=== PATIENT | male | born 1955 | race Hispanic/Latino ===

== ENCOUNTER 2018-08-30 22:50 | Inpatient (IN) | payer MEDICARE, OTHER ==
[2018-08-30 23:47] LABS: Hematocrit 29.1 % (35.5-45.6); Hemoglobin 10.2 gm/dl (11.8-15.2); Mean Corpuscular HGB Conc 35 % (32-34); Mean Corpuscular Volume 84 fl (84-94); Platelet Count 590 K/mm3 (140-440); Red Blood Count 3.48 M/mm3 (3.65-5.03); Red Cell Distribution Width 17.1 % (13.2-15.2)
[2018-08-30 23:58] LABS: INR 1.02 (0.87-1.13); Partial Thromboplastin Time 34.6 Sec. (24.2-36.6)
[2018-08-31 00:03] LABS: Creatine Kinase MB 3.2 ng/mL (0.0-4.0)
[2018-08-31 00:04] LABS: BUN/Creatinine Ratio 16; Blood Urea Nitrogen 14 mg/dL (9-20); Calcium 8.6 mg/dL (8.4-10.2); Hemolysis Index 2
--- NOTE | 2018-08-31 00:14 | XRay Report ---
PROCEDURE: XR CHEST 1V AP TECHNIQUE: Chest radiograph single view. HISTORY: chest pain COMPARISONS: None . FINDINGS: Heart: The heart is mildly enlarged.. Mediastinum/Vessels: Normal. Lungs/Pleural space: There is slightly increased markings in both lung bases secondary to bibasilar scarring versus minimal atelectasis.. Bony thorax: No acute osseous abnormality. There is hardware in the proximal right humerus from previ ous ORIF. Life support devices: None. IMPRESSION: Minimal bibasilar scarring versus subsegmental atelectasis. No acute infiltrates or effu sions.. This document is electronically signed by Qamar Garvey MD., August 31 2018 12:12:36 AM ET
[2018-08-31] MEDS ORDERED: VANCOMYCIN/NS 1 GM/250 ML 1 GM/250 ML BAG IV ONE (00:25)
[2018-08-31] MEDS ORDERED: ZOSYN/NS 4.5GM/100ML 4.5 GM/100 ML VIAL IV ONE ×2 (00:25→10:59)
[2018-08-31] MEDS ORDERED: ASPIRIN PO ONE (00:27)
[2018-08-31] MEDS ORDERED: NACL 3% 250 ML IV ONE (00:31)
[2018-08-31] MEDS ORDERED: DILAUDID IV ONE (01:11)
[2018-08-31] MEDS ORDERED: ZOFRAN IV ONE (01:11)
--- NOTE | 2018-08-31 01:11 | Emergency Department Report ---
ED General Adult HPI - General Chief complaint: Chest Pain Stated complaint: ABD PAIN Time Seen by Provider: 08/30/18 22:55 Source: patient, EMS, old records reviewed (last visit was 2012 [facility] record for review, [facility] records reviewed and placed on chart) Mode of arrival: Stretcher Limitations: Physical Limitation - History of Present Illness Initial comments: 63-year-old male with hx of Diabetes presents from home with multiple compla ints. Initial complaint is chest pain, bilateral arm pain, and leg pain. He also states to me that he has pain in her buttock area from sitting. Patient presents to the ER covered in feces and with a wound VAC on his left foot. Patient states that he was discharged from [facility] rehabilitation facility 3 days ago back to his home. States that the wound care nurse did not come out his past August 28 as scheduled. Patient states prior to his rehabilitation admission he was at [facility]. Overall patient is a very poor historian. He is unable to qualify his pain or tell me how long he has had the chest pain. He denies being on antibiotics currently. Despite having on DM he states he takes 6-7 medications but he does not know what medical conditions he takes the medications for. I have requested medical records from [facility] Medical records received from [facility] at 1:30 AM summary below -Patient was admitted there July 20 until July 29 for sepsis -As per medical record past medical history of CHF, diabetes, alcohol abuse, right BKA, hypertension, left calcaneus osteomyelitis, arterial insufficiency with ischemic ulcer, CAD with PCI -Patient presented covered in feces and was admitted for cellulitis of the left lower extremity and sepsis. -Patient had a local wound debridement and treated with IV Unasyn. As per infectious disease (Dr valero and Dr Sutton) recommendation on July 27 it was recommended to continue IV Unasyn for 6 weeks and that ultimately patient may require an amputation. Patient received 1 unit of PRBCs for a hemoglobin drop to 6.9 during admission. -Upon discharged it was recommended by ID patient take Augmentin for 6 weeks. -Patient had positive blood cultures 2/4 bottles (1/2 sets_ with Staphylococcus epidermidis likely contaminated and repeat cultures showed no growth 48 hrs - Vascular consulted: pt has chronic contracture of left knee and therefore might require a Left AKA (not a BKA candidate) -patient also had hyponatremia (134 on admission) with improvement of sodium to 140 upon discharge -Patient has chronic diastolic heart failure with Last documented EF is greater than 55% -Patient had a metabolic acidosis secondary to sepsis and AKA and was also treated with sodium bicarbonate 650 mg by mouth 3 times a day -Patient is anemia with suspected to be due to chronic illness -Patient also had acute kidney injury with a creatinine of 1.79 during admission -Reactive thrombocytosis with platelet count of 349303 -Patient has a history of alcohol abuse in this patient [facility] protocol for Librium taper as needed -He also state patient has a history of hypertension and his meds would be continued of note Dr Fields (vascular surgeon) preformed left lower extremity arteriog leandra Dr Baldwin was the [employer] consulted Patient had also previously been admitted to [facility] in May 2018 for left leg cellulitis at [facility] as well MRI performed on 06/09/2016 showed underlying osteomyelitis of the left calcaneus pt was d/red at that time on 4 wks of flagyl, cipro, and doxy but did not take the meds nor follow up Please refer to records on chart for further details - Related Data Allergies Allergy/AdvReac Type Severity Reaction Status Date / Time No Known Allergies Allergy Verified 08/31/18 00:37 ED Review of Systems ROS: Stated complaint: ABD PAIN Other details as noted in HPI Comment: All other systems reviewed and negative ED Past Medical Hx - Past Medical History Hx Hypertension: Yes Hx Heart Attack/AMI: Yes (hx of cad s/p PCI) Hx Congestive Heart Failure: Yes Hx Diabetes: Yes Additional medical history: History of alcohol abuse, arterial insufficiency with ischemic ulcer, left calcaneus osteomyelitis - Surgical History Past Surgical History?: Yes Additional Surgical History: right BKA ED Physical Exam - General Limitations: Physical Limitation - Other Other exam information: General: pt arrived covered in feces Head exam: Atraumatic, normocephalic Eyes exam: Normal appearance, pupils equal reactive to light, extraocular movements intact ENT: Moist mucous membrane Neck exam: Normal inspection, full range of motion, no meningismus nontender Respiratory exam: Clear to auscultation bilateral, no wheezes, rales, crackles Cardiovascular: Normal rate and rhythm, normal heart sounds Abdomen: Soft, nondistended, and nontender, with normal bowel sounds, no rebound, or guarding Extremity: Right bka, left foot with medial wound vac initial dressing dirty and covered in feces, left foot edema. Redness to left power leg Back: Normal Inspection, full range of motion, no tenderness Neurologic: Alert, oriented x3, cranial nerves intact, no motor or sensory deficit Psychiatric: normal affect, normal mood Skin: Patient had various stage I pressure ulcer is on the perineal and gluteal area referred to pictures on record ED Course Vital Signs 08/31/18 08/31/18 08/31/18 00:12 00:15 00:26 Temperature 99 F Pulse Rate 83 82 Respiratory 26 H 21 Rate Blood Pressure 134/63 Blood Pressure [Left] O2 Sat by Pulse 97 97 Oximetry 08/31/18 08/31/18 08/31/18 06:21 10:09 15:10 Temperature Pulse Rate 86 90 91 H Respiratory 17 27 H 20 Rate Blood Pressure Blood Pressure 162/77 112/57 137/71 [Left] O2 Sat by Pulse 96 98 96 Oximetry ED Medical Decision Making - Lab Data Result diagrams: 08/30/18 23:28 08/31/18 10:54 Lab Results 08/30/18 08/30/18 08/30/18 Range/Units 23:28 23:28 23:28 WBC 20.5 H (4.5-11.0) K/mm3 RBC 3.48 L (3.65-5.03) M/mm3 Hgb 10.2 L (11.8-15.2) gm/dl Hct 29.1 L (35.5-45.6) % MCV 84 (84-94) fl MCH 29 (28-32) pg MCHC 35 H (32-34) % RDW 17.1 H (13.2-15.2) % Plt Count 590 H (140-440) K/mm3 Add Manual Diff Complete Total Counted 100 Seg Neuts % (Manual) 69.0 (40.0-70.0) % Band Neutrophils % 0 % Lymphocytes % (Manual) 22.0 (13.4-35.0) % Reactive Lymphs % (Man) 0 % Monocytes % (Manual) 7.0 (0.0-7.3) % Eosinophils % (Manual) 1.0 (0.0-4.3) % Basophils % (Manual) 1.0 (0.0-1.8) % Metamyelocytes % 0 % Myelocytes % 0 % Promyelocytes % 0 % Blast Cells % 0 % Nucleated RBC % Not Reportable Seg Neutrophils # Man 14.1 H (1.8-7.7) K/mm3 Band Neutrophils # 0.0 K/mm3 Lymphocytes # (Manual) 4.5 (1.2-5.4) K/mm3 Abs React Lymphs (Man) 0.0 K/mm3 Monocytes # (Manual) 1.4 H (0.0-0.8) K/mm3 Eosinophils # (Manual) 0.2 (0.0-0.4) K/mm3 Basophils # (Manual) 0.2 H (0.0-0.1) K/mm3 Metamyelocytes # 0.0 K/mm3 Myelocytes # 0.0 K/mm3 Promyelocytes # 0.0 K/mm3 Blast Cells # 0.0 K/mm3 WBC Morphology Not Reportable Hypersegmented Neuts Not Reportable Hyposegmented Neuts Not Reportable Hypogranular Neuts Not Reportable Smudge Cells Not Reportable Toxic Granulation Not Reportable Toxic Vacuolation Not Reportable Dohle Bodies Not Reportable Pelger-Huet Anomaly Not Reportable Lauren Rods Not Reportable Platelet Estimate Not Reportable Clumped Platelets Not Reportable Plt Clumps, EDTA Not Reportable Large Platelets Not Reportable Giant Platelets Not Reportable Platelet Satelliting Not Reportable Plt Morphology Comment Not Reportable RBC Morphology Normal Dimorphic RBCs Not Reportable Polychromasia Not Reportable Hypochromasia Not Reportable Poikilocytosis Not Reportable Anisocytosis Not Reportable Microcytosis Not Reportable Macrocytosis Not Reportable Spherocytes Not Reportable Pappenheimer Bodies Not Reportable Sickle Cells Not Reportable Target Cells Not Reportable Tear Drop Cells Not Reportable Ovalocytes Not Reportable Helmet Cells Not Reportable [place] Bodies Not Reportable [place] Rings Not Reportable Crowell Cells Not Reportable Bite Cells Not Reportable Crenated Cell Not Reportable Elliptocytes Not Reportable Acanthocytes (Spur) Not Reportable Rouleaux Not Reportable Hemoglobin C Crystals Not Reportable Schistocytes Not Reportable Malaria parasites Not Reportable Tim Bodies Not Reportable Hem Pathologist Commnt No PT 14.0 (12.2-14.9) Sec. INR 1.02 (0.87-1.13) APTT 34.6 (24.2-36.6) Sec. VBG pH (7.320-7.420) Sodium 112 L* (137-145) mmol/L Potassium 4.7 (3.6-5.0) mmol/L Chloride 81.1 L (98-107) mmol/L Carbon Dioxide 16 L (22-30) mmol/L Anion Gap 21 mmol/L BUN 14 (9-20) mg/dL Creatinine 0.9 (0.8-1.5) mg/dL Estimated GFR > 60 ml/min BUN/Creatinine Ratio 16 % Glucose 117 H (75-100) mg/dL Osmolality Mosm/kg Lactic Acid (0.7-2.0) mmol/L Calcium 8.6 (8.4-10.2) mg/dL Total Creatine Kinase 59 (55-170) units/L CK-MB (CK-2) 3.2 (0.0-4.0) ng/mL CK-MB (CK-2) Rel Index 5.4 H (0-4) Troponin T 0.065 H (0.00-0.029) ng/mL 08/31/18 08/31/18 08/31/18 Range/Units 00:37 00:37 00:37 WBC (4.5-11.0) K/mm3 RBC (3.65-5.03) M/mm3 Hgb (11.8-15.2) gm/dl Hct (35.5-45.6) % MCV (84-94) fl MCH (28-32) pg MCHC (32-34) % RDW (13.2-15.2) % Plt Count (140-440) K/mm3 Add Manual Diff Total Counted Seg Neuts % (Manual) (40.0-70.0) % Band Neutrophils % % Lymphocytes % (Manual) (13.4-35.0) % Reactive Lymphs % (Man) % Monocytes % (Manual) (0.0-7.3) % Eosinophils % (Manual) (0.0-4.3) % Basophils % (Manual) (0.0-1.8) % Metamyelocytes % % Myelocytes % % Promyelocytes % % Blast Cells % % Nucleated RBC % Seg Neutrophils # Man (1.8-7.7) K/mm3 Band Neutrophils # K/mm3 Lymphocytes # (Manual) (1.2-5.4) K/mm3 Abs React Lymphs (Man) K/mm3 Monocytes # (Manual) (0.0-0.8) K/mm3 Eosinophils # (Manual) (0.0-0.4) K/mm3 Basophils # (Manual) (0.0-0.1) K/mm3 Metamyelocytes # K/mm3 Myelocytes # K/mm3 Promyelocytes # K/mm3 Blast Cells # K/mm3 WBC Morphology Hypersegmented Neuts Hyposegmented Neuts Hypogranular Neuts Smudge Cells Toxic Granulation Toxic Vacuolation Dohle Bodies Pelger-Huet Anomaly Lauren Rods Platelet Estimate Clumped Platelets Plt Clumps, EDTA Large Platelets Giant Platelets Platelet Satelliting Plt Morphology Comment RBC Morphology Dimorphic RBCs Polychromasia Hypochromasia Poikilocytosis Anisocytosis Microcytosis Macrocytosis Spherocytes Pappenheimer Bodies Sickle Cells Target Cells Tear Drop Cells Ovalocytes Helmet Cells Bai-[place]ann Bodies [place] Rings Lee Cells Bite Cells Crenated Cell Elliptocytes Acanthocytes (Spur) Rouleaux Hemoglobin C Crystals Schistocytes Malaria parasites Tim Bodies Hem Pathologist Commnt PT (12.2-14.9) Sec. INR (0.87-1.13) APTT (24.2-36.6) Sec. VBG pH (7.320-7.420) Sodium (137-145) mmol/L Potassium (3.6-5.0) mmol/L Chloride 79.5 L (98-107) mmol/L Carbon Dioxide (22-30) mmol/L Anion Gap mmol/L BUN (9-20) mg/dL Creatinine (0.8-1.5) mg/dL Estimated GFR ml/min BUN/Creatinine Ratio % Glucose (75-100) mg/dL Osmolality 278 Mosm/kg Lactic Acid (0.7-2.0) mmol/L Calcium (8.4-10.2) mg/dL Total Creatine Kinase (55-170) units/L CK-MB (CK-2) (0.0-4.0) ng/mL CK-MB (CK-2) Rel Index (0-4) Troponin T 0.078 H (0.00-0.029) ng/mL 08/31/18 08/31/18 Range/Units 00:37 Unknown WBC (4.5-11.0) K/mm3 RBC (3.65-5.03) M/mm3 Hgb (11.8-15.2) gm/dl Hct (35.5-45.6) % MCV (84-94) fl MCH (28-32) pg MCHC (32-34) % RDW (13.2-15.2) % Plt Count (140-440) K/mm3 Add Manual Diff Total Counted Seg Neuts % (Manual) (40.0-70.0) % Band Neutrophils % % Lymphocytes % (Manual) (13.4-35.0) % Reactive Lymphs % (Man) % Monocytes % (Manual) (0.0-7.3) % Eosinophils % (Manual) (0.0-4.3) % Basophils % (Manual) (0.0-1.8) % Metamyelocytes % % Myelocytes % % Promyelocytes % % Blast Cells % % Nucleated RBC % Seg Neutrophils # Man (1.8-7.7) K/mm3 Band Neutrophils # K/mm3 Lymphocytes # (Manual) (1.2-5.4) K/mm3 Abs React Lymphs (Man) K/mm3 Monocytes # (Manual) (0.0-0.8) K/mm3 Eosinophils # (Manual) (0.0-0.4) K/mm3 Basophils # (Manual) (0.0-0.1) K/mm3 Metamyelocytes # K/mm3 Myelocytes # K/mm3 Promyelocytes # K/mm3 Blast Cells # K/mm3 WBC Morphology Hypersegmented Neuts Hyposegmented Neuts Hypogranular Neuts Smudge Cells Toxic Granulation Toxic Vacuolation Dohle Bodies Pelger-Huet Anomaly Lauren Rods Platelet Estimate Clumped Platelets Plt Clumps, EDTA Large Platelets Giant Platelets Platelet Satelliting Plt Morphology Comment RBC Morphology Dimorphic RBCs Polychromasia Hypochromasia Poikilocytosis Anisocytosis Microcytosis Macrocytosis Spherocytes Pappenheimer Bodies Sickle Cells Target Cells Tear Drop Cells Ovalocytes Helmet Cells [place] Bodies [place] Rings Lee Cells Bite Cells Crenated Cell Elliptocytes Acanthocytes (Spur) Rouleaux Hemoglobin C Crystals Schistocytes Malaria parasites Tim Bodies Hem Pathologist Commnt PT (12.2-14.9) Sec. INR (0.87-1.13) APTT (24.2-36.6) Sec. VBG pH 7.299 L (7.320-7.420) Sodium (137-145) mmol/L Potassium (3.6-5.0) mmol/L Chloride (98-107) mmol/L Carbon Dioxide (22-30) mmol/L Anion Gap mmol/L BUN (9-20) mg/dL Creatinine (0.8-1.5) mg/dL Estimated GFR ml/min BUN/Creatinine Ratio % Glucose (75-100) mg/dL Osmolality Mosm/kg Lactic Acid 2.30 H* (0.7-2.0) mmol/L Calcium (8.4-10.2) mg/dL Total Creatine Kinase (55-170) units/L CK-MB (CK-2) (0.0-4.0) ng/mL CK-MB (CK-2) Rel Index (0-4) Troponin T (0.00-0.029) ng/mL - EKG Data -: EKG Interpreted by Me (Right Bundle branch block) EKG shows normal: sinus rhythm (qr), axis (qrs 76), QRS complexes (qrsd 181), ST-T waves (no stemi) Rate: normal (84) - EKG Data When compared to previous EKG there are: no significant change (from [facility]) - Radiology Data Radiology results: report reviewed cxr: naf PROCEDURE: CT ANGIO CHEST TECHNIQUE: Computerized tomographic angiography of the chest was performed after the IV injection of iodinated nonionic contrast including image processing. The image data was postprocessed using 2-dimensional multiplanar reformatted (MPR) and 3-dimensional (MIP and/or volume rendered) techniques. Automated exposure control, adjustment of mA and/or kV according to patient size, or iterative reconstruction dose optimization techniques were utilized. HISTORY: chest pain COMPARISONS: None . FINDINGS: Heart and pericardium: The heart size is normal. No pericardial effusion. There are some cysts identified on the thyroid gland bilaterally.. Thoracic aorta: Normal. Pulmonary vasculature: Normal. Lymph nodes: No enlarged thoracic lymph nodes. Lungs: Bilateral lower lung atelectasis. No effusion or pneumothorax. The central airway is patent. Pleural space: No effusion, thickening, or pneumothorax. Musculoskeletal structures: No significant abnormality. Upper abdominal structures: No significant abnormality. IMPRESSION: There is no evidence of pulmonary arterial emboli. The lungs are clear without infiltrate, effusion or pneumothorax. Small cysts are identified in both lobes thyroid gland PROCEDURE: XR FOOT 2V LT HISTORY: wound, hx of osteomyelitis FINDINGS: AP and lateral views of the left foot were acquired. There is loss of cortical bone of the posterior and plantar aspects of the calcaneus, likely osteomyelitis. Consider MRI for further evaluation. There is also soft tissue swelling of the midfoot. There is severe osteopenia of the distal metatarsal symptomatology. IMPRESSION: Suspected osteomyelitis of posterior aspect of calcaneus and plantar aspect of calcaneus. - Medical Decision Making cp elevated trop stable x2, no stemi, cta to r/o PE asa provided Right Bundle-branch block chronic as per previous ekg hx of cad leukocytosis various stage 1 pressure ulcers, and foot wound vac urine collection pending cultures pending vanc, zosyn empirically recent sepsis with ongoing left foot osteomyelitis ? compliance with meds Pt may require amputation hyponatremia acute based on recent d/c summary 3% NS 250ml at 25ml/hr ordered since pt does have signs of leg edema Urine lytes/osmo ordered he does appear to be mildly confuse although aox3 is unable to provide details or regarding his history of present illness in recent treatment also hx of chf, etoh abuse generalized pain tx with Dilaudid 0.5mg and zofran Pt presented with covered in feces and my need additional home care vs intermediate/rehab upon d/c Patient will need to be admitted to the hospital for further treatment. I have requested medical records from [facility] to determine patient's recent hospital course, treatment, and underlying chronic conditions. Patient has been discussed with Dr. Salgado hospitalist control panel tester I requested that Dr. Woodard recontact Dr Salgado for admission once CT angiogram results - Differential Diagnosis VT, Pulm embolism, encephalopathy Critical Care Time: Yes Critical care time in (mins) excluding proc time.: 35 Critical care attestation.: If time is entered above; I have spent that time in minutes in the direct care of this critically ill patient, excluding procedure time. ED Disposition Clinical Impression: Left foot infection, Cellulitis, Hyponatremia, Chest pain, Elevated troponin, Leukocytosis, Foot osteomyelitis, left, Sepsis Disposition: OP ADMIT IP TO THIS HOSP Is pt being admited?: No Condition: Stable Time of Disposition: 02:14
[2018-08-31] MEDS ORDERED: ZOFRAN ONE (01:14)
[2018-08-31] MEDS ORDERED: DILAUDID ONE (01:14)
[2018-08-31 02:06] LABS: Total Cells Counted 100
[2018-08-31 02:07] LABS: RBC Morphology Normal
--- NOTE | 2018-08-31 02:20 | Cat Scan Report ---
PROCEDURE: CT ANGIO CHEST TECHNIQUE: Computerized tomographic angiography of the chest was performed after the IV injection of iodinated nonionic contrast including image processing. The image data was postprocessed using 2-di mensional multiplanar reformatted (MPR) and 3-dimensional (MIP and/or volume rendered) techniques. Au tomated exposure control, adjustment of mA and/or kV according to patient size, or iterative reconstr uction dose optimization techniques were utilized. HISTORY: chest pain COMPARISONS: None . FINDINGS: Heart and pericardium: The heart size is normal. No pericardial effusion. There are some cysts identi fied on the thyroid gland bilaterally.. Thoracic aorta: Normal. Pulmonary vasculature: Normal. Lymph nodes: No enlarged thoracic lymph nodes. Lungs: Bilateral lower lung atelectasis. No effusion or pneumothorax. The central airway is patent. Pleural space: No effusion, thickening, or pneumothorax. Musculoskeletal structures: No significant abnormality. Upper abdominal structures: No significant abnormality. IMPRESSION: There is no evidence of pulmonary arterial emboli. The lungs are clear without infiltrate, effusion or pneumothorax. Small cysts are identified in both lobes thyroid gland.. . This document is electronically signed by Riya Diez DO., August 31 2018 02:18:21 AM ET
--- NOTE | 2018-08-31 03:06 | XRay Report ---
PROCEDURE: XR FOOT 2V LT HISTORY: wound, hx of osteomyelitis FINDINGS: AP and lateral views of the left foot were acquired. There is loss of cortical bone of the posterior and plantar aspects of the calcaneus, likely osteomye litis. Consider MRI for further evaluation. There is also soft tissue swelling of the midfoot. There is severe osteopenia of the distal metatarsal symptomatology. IMPRESSION: Suspected osteomyelitis of posterior aspect of calcaneus and plantar aspect of calcaneus. This document is electronically signed by Calvin Dillon MD., August 31 2018 03:04:21 AM ET
[2018-08-31] MEDS ORDERED: SODIUM CHLORIDE FLUSH SYRINGE 10 ML IV PRN (03:16)
[2018-08-31] MEDS ORDERED: ZOFRAN IV PRN (03:16)
--- NOTE | 2018-08-31 03:20 | History and Physical Report ---
History of Present Illness Date of examination: 08/31/18 History of present illness: 63 -year-old man who is a poor historian, most of history was obtained from the chart from [place]. He has a history of hypertension, diabetes, coronary artery disease, CHF, PVD comes to the ER for evaluation of left leg pain. He arrived to the ER covered in feces. He had multiple admission to [facility] for treatment of osteomylitis of calcaneus, non-compliant with treatment. His last admission he was treated with Unasyn, his cultures grew Staph Epi, repeat culture shows no growth, discharged on augmentin x 6 weeks to a rehab. He was discharged 3 to 4 days ago to home. today he complain of chest pain in the epigastric area, unable to give details. He denies nausea, vomiting, SOB, diaphoresis Review of systems Constitutional: no weight loss, chills, fever Ears, eyes, nose, mouth and throat: no nasal congestion, no nasal discharge, no sinus pressure, no vision change, no red eye. Neck: No neck pain or rigidity. Cardiovascular: no palpitations. Respiratory: no cough, shortness of breath Gastrointestinal: no hematochezia, abdominal pain Genitourinary : no frequency , no hematuria Musculoskeletal: no joint swelling or muscle ache Integumentary: no rash, no pruritis Neurological: no parathesias, no focal weakness Endocrine: no cold or heat intolerance, no polyuria or polydipsia Hematologic/Lymphatic: no easy bruising, no easy bleeding, no gland swelling Allergic/Immunologic: no urticaria, no angioedema. PAST MEDICAL HISTORY:hypertension, diabetes, coronary artery disease, CHF, PVD PAST SURGICAL HISTORY: Right BKA, right shoulder SOCIAL HISTORY: + alcohol, no drugs, tobacco FAMILY HISTORY: Hypertension Medications and Allergies Allergies Allergy/AdvReac Type Severity Reaction Status Date / Time No Known Allergies Allergy Verified 08/31/18 00:37 Active Meds: Active Medications Acetaminophen (Tylenol) 650 mg PO Q4H PRN PRN Reason: Pain MILD(1-3)/Fever >100.5/ZULUAGA Sodium Chloride (Nacl 3%) 250 mls @ 25 mls/hr IV DIRECT ONE Stop: 08/31/18 10:30 Last Admin: 08/31/18 01:28 Dose: 25 mls/hr Documented by: Piperacillin Sod/Tazobactam Sod (Zosyn/Ns 3.375gm/50ml) 3.375 gm in 50 mls @ 100 mls/hr IV Q8HR MATEO Ondansetron HCl (Zofran) 4 mg IV Q8H PRN PRN Reason: Nausea And Vomiting Sodium Chloride (Sodium Chloride Flush Syringe 10 Ml) 10 ml IV BID [facility] Sodium Chloride (Sodium Chloride Flush Syringe 10 Ml) 10 ml IV PRN PRN PRN Reason: LINE FLUSH Exam - Physical Exam Narrative exam: General Apperance: The patient lying in bed, breathing comfortable HEENT: Normocephalic, atraumatic. Pupils equally round and reactive to light, EOMI, no sclericterus or JVD or thyromegaly or nodule. , no carotid bruit, muco us membranes moist, no exudate or erythema Heart: S1-S2, regular is rhythm Lungs: Clear to auscultation bilaterally, breathing comfortable Abdomen: Positive bowel sounds, soft, nontender, nondistended, no organomegaly Extremities: Right BKA, left heel wound with wound VAC, No edema cyanosis clubbing Skin: sacral decubitusno rash, nodule, warm and dry Neuro: cranial nerves 2-12 intact, speech is fluent, motor/sensory intact - Constitutional Vitals: Temp Pulse Resp BP Pulse Ox 99 F 82 21 134/63 97 08/31/18 00:26 08/31/18 00:15 08/31/18 00:15 08/31/18 00:15 08/31/18 00:15 Results - Labs CBC & Chem 7: 08/30/18 23:28 08/31/18 03:37 Labs: Abnormal lab results 08/30/18 08/30/18 08/31/18 Range/Units 23:28 23:28 00:37 WBC 20.5 H (4.5-11.0) K/mm3 RBC 3.48 L (3.65-5.03) M/mm3 Hgb 10.2 L (11.8-15.2) gm/dl Hct 29.1 L (35.5-45.6) % MCHC 35 H (32-34) % RDW 17.1 H (13.2-15.2) % Plt Count 590 H (140-440) K/mm3 Seg Neutrophils # Man 14.1 H (1.8-7.7) K/mm3 Monocytes # (Manual) 1.4 H (0.0-0.8) K/mm3 Basophils # (Manual) 0.2 H (0.0-0.1) K/mm3 VBG pH (7.320-7.420) Sodium 112 L* (137-145) mmol/L Chloride 81.1 L (98-107) mmol/L Carbon Dioxide 16 L (22-30) mmol/L Glucose 117 H (75-100) mg/dL Lactic Acid (0.7-2.0) mmol/L CK-MB (CK-2) Rel Index 5.4 H (0-4) Troponin T 0.065 H 0.078 H (0.00-0.029) ng/mL 08/31/18 08/31/18 08/31/18 Range/Units 00:37 00:37 01:30 WBC (4.5-11.0) K/mm3 RBC (3.65-5.03) M/mm3 Hgb (11.8-15.2) gm/dl Hct (35.5-45.6) % MCHC (32-34) % RDW (13.2-15.2) % Plt Count (140-440) K/mm3 Seg Neutrophils # Man (1.8-7.7) K/mm3 Monocytes # (Manual) (0.0-0.8) K/mm3 Basophils # (Manual) (0.0-0.1) K/mm3 VBG pH (7.320-7.420) Sodium (137-145) mmol/L Chloride 79.5 L (98-107) mmol/L Carbon Dioxide (22-30) mmol/L Glucose (75-100) mg/dL Lactic Acid 2.30 H* 2.10 H* (0.7-2.0) mmol/L CK-MB (CK-2) Rel Index (0-4) Troponin T (0.00-0.029) ng/mL 08/31/18 08/31/18 Range/Units 02:21 Unknown WBC (4.5-11.0) K/mm3 RBC (3.65-5.03) M/mm3 Hgb (11.8-15.2) gm/dl Hct (35.5-45.6) % MCHC (32-34) % RDW (13.2-15.2) % Plt Count (140-440) K/mm3 Seg Neutrophils # Man (1.8-7.7) K/mm3 Monocytes # (Manual) (0.0-0.8) K/mm3 Basophils # (Manual) (0.0-0.1) K/mm3 VBG pH 7.299 L (7.320-7.420) Sodium (137-145) mmol/L Chloride (98-107) mmol/L Carbon Dioxide (22-30) mmol/L Glucose (75-100) mg/dL Lactic Acid 2.10 H* (0.7-2.0) mmol/L CK-MB (CK-2) Rel Index (0-4) Troponin T (0.00-0.029) ng/mL - Imaging and Cardiology CT scan - chest: report reviewed Assessment and Plan Assessment Cellulitis of the left leg with osteomyelitisw/ wound vac Chest pain Hyponatremia severe Hypertension Diabetes Coronary artery disease CHF, stable Peripheral vascular disease Sacral decub Plan Admit to medicine Start IV Zosyn, consult infectious disease, case d/w Dr Short Check serial BMP, urine electrolytes, consult renal, case discussed with Dr Tucker Check cardiac enzymes, consult cardiology Check physician initiated insulin sliding-scale Continue her outpatient medications DVT prophylaxis, consult wound care
[2018-08-31 04:08] LABS: BUN/Creatinine Ratio 16; Blood Urea Nitrogen 14 mg/dL (9-20); Hemolysis Index 57
[2018-08-31 04:41] LABS: Chol/HDL Ratio 2.92 %; HDL Cholesterol 53 mg/dL (40-59); LDL Cholesterol,Direct 88 mg/dL (50-130)
[2018-08-31 04:45] LABS: Creatine Kinase MB 3.2 ng/mL (0.0-4.0)
[2018-08-31] MEDS ORDERED: ZOSYN/NS 3.375GM/50ML 3.375 GM/50 ML BAG IV SCH (06:00)
[2018-08-31 07:10] LABS: Bilirubin,Urine NEG (Negative); Blood,Urine LG (Negative); Color,Urine Straw (Yellow)
[2018-08-31 07:11] LABS: Bacteria,Urine 1+ /HPF (Negative); Mucus,Urine FEW /HPF; Urobilinogen,Urine < 2.0 mg/dL (<2.0)
[2018-08-31 08:06] LABS: BUN/Creatinine Ratio 16; Blood Urea Nitrogen 14 mg/dL (9-20); Calcium 7.7 mg/dL (8.4-10.2); Hemolysis Index 7
[2018-08-31] MEDS ORDERED: ZOSYN/NS 4.5GM/100ML 4.5 GM/100 ML VIAL IV SCH (10:00)
[2018-08-31] MEDS ORDERED: LOVENOX SUB-Q SCH (10:00)
[2018-08-31] MEDS ORDERED: TYLENOL ONE (10:59)
[2018-08-31] MEDS ORDERED: LOVENOX SUB-Q ONE (11:04)
[2018-08-31] MEDS: LOVENOX SUB-Q SCH (11:05)
[2018-08-31] MEDS: SODIUM CHLORIDE FLUSH SYRINGE 10 ML IV SCH ×2 (11:05→22:53)
[2018-08-31] MEDS: TYLENOL PO PRN ×2 (11:35→22:53)
[2018-08-31 11:48] LABS: Creatine Kinase MB 4.3 ng/mL (0.0-4.0)
[2018-08-31 11:49] LABS: BUN/Creatinine Ratio 15; Blood Urea Nitrogen 15 mg/dL (9-20); Calcium 7.9 mg/dL (8.4-10.2); Hemolysis Index 50
--- NOTE | 2018-08-31 12:10 | Consultation ---
History of Present Illness - Reason for Consult Consult date: 08/31/18 hyponatremia - History of Present Illness The patient is a 63 YO male who is known to our service from previous admissions at [facility] with historysignificant for Chronic diastolic CHF,Diabetes mellitus type 2, ETOH abuse, right BKA, chronic L leg wound (refused amputation), Anemia and medical non-compliance who presented to [facility] ED with c/o L leg pain. Patient is a poor historian. He arrived to the ER covered in feces. He had multiple admissions at [facility] for treatment of osteomylitis of calcaneus. He was discharged on 07/29/18 from [facility] to a rehab and discharged home 3 to 4 days ago. He denies nausea, vomiting, diarrhea, SOB, diaphoresis, cough, fever, chills, Hemoptysis, cp, sob, dysuria, hematuria or dizziness. Patient has left foot wound vac. Patient wasadmitted with L leg cellulitis, Hyponatremia and ?CP. Sodium is 110 and bicarb 10. Nephrology was consulted for further evaluation and treatment. Past History Past Medical History: anemia, heart failure, hypertension, hyperlipidemia Medications and Allergies Allergies Allergy/AdvReac Type Severity Reaction Status Date / Time No Known Allergies Allergy Verified 08/31/18 00:37 Active Meds: Active Medications Acetaminophen (Tylenol) 650 mg PO Q4H PRN PRN Reason: Pain MILD(1-3)/Fever >100.5/Z[place] Last Admin: 08/31/18 11:35 Dose: 650 mg Documented by: Enoxaparin Sodium (Lovenox) 40 mg SUB-Q QDAY@1000 [facility] Last Admin: 08/31/18 11:05 Dose: 40 mg Documented by: Piperacillin Sod/Tazobactam Sod (Zosyn/Ns 4.5gm/100ml) 4.5 gm in 100 mls @ 200 mls/hr IV Q8H [facility] Last Admin: 08/31/18 11:05 Dose: 200 mls/hr Documented by: Ondansetron HCl (Zofran) 4 mg IV Q8H PRN PRN Reason: Nausea And Vomiting Sodium Chloride (Sodium Chloride Flush Syringe 10 Ml) 10 ml IV BID [facility] Last Admin: 08/31/18 11:05 Dose: 10 ml Documented by: Sodium Chloride (Sodium Chloride Flush Syringe 10 Ml) 10 ml IV PRN PRN PRN Reason: LINE FLUSH Review of Systems Constitutional: no weight loss, no weight gain, no fever, no chills, no anorexia, no fatigue, no weakness, no poor appetite Cardiovascular: edema, leg edema, no chest pain, no orthopnea, no syncope, no lightheadedness, no shortness of breath, no decreased exercise tolerance Respiratory: no cough, no hemoptysis, no shortness of breath Gastrointestinal: no abdominal pain, no nausea, no vomiting Genitourinary Male: no dysuria, no hematuria Integumentary: sores, wounds (L foot) Neurological: no paralysis, no weakness, no seizures, no syncope, no convulsions, no aphasia Exam - Vital Signs Vital signs: Vital Signs Pulse Resp Pulse Ox 83 26 H 97 08/31/18 00:12 08/31/18 00:12 08/31/18 00:12 - General Appearance General appearance: well-developed, appears stated age, other (no distress) EENT: ATNC, PERRL, mucous membranes dry, hearing intact, vision intact Neck: Present: neck supple, trachea midline Respiratory: Clear to Ascultation Heart: regular, S1S2, no murmurs Gastrointestinal: Present: normoactive bowel sounds. Absent: tenderness, distended Integumentary: erythema (L foot covered with dressing and wound vac) Neurologic: no focal deficit, no asterixis Musculoskeletal: Present: other (no edema) Results - Lab Results 08/30/18 23:28 08/31/18 10:54 Most recent lab results Calcium 7.9 mg/dL (8.4-10.2) L 08/31/18 10:54 13.0 mg/dL (0.1-20.0) 08/31/18 06:46 14 mmol/L 08/31/18 06:46 Assessment and Plan 1. Hyponatremia: Likley hypoantremia 2/2 volume depletion. He was on 3% saline. Start on 0.9% saline. Monitor Sodium level for gradual imporvement. 2. FEN: Metabolic acidosis,PO Sodium bicarbonate. Lactic acidosis, monitor. Monitor lytes. 3. Sepsis: Chronic left heel osteomyelitis. Followed by ID. 4. Anemia: POA. Chronic. 5. Chronic diastolic CHF. 6. HTN.
--- NOTE | 2018-08-31 13:00 | Consultation ---
History of Present Illness Consult date: 08/31/18 Consult reason: chest pain History of present illness: Patient is a 63 year old man with multiple medical problems, recently discharged from [facility] with Sepsis and has a wound vac of his left foot. There is no history of coronary artery disease and he has had no recent invasive or non-invasive cardiac workup. Records reviewed shows an echocardiogram done one month ago that documents a normal left ventricular systolic function. He was brought to this hospital with complaint of chest pain thus this cardiac consultation. Patient denies chest pain but reports generalized pain not relieved with Tylenol. There was no report of unusual shortness of breath, no palpitations or no pre-syncope. Initial labs revealed severe hyponatremia, sodium of 112 and a WBC of 20k. An ECG is sinus rhythm with a RBBB. Medications and Allergies Allergies Allergy/AdvReac Type Severity Reaction Status Date / Time No Known Allergies Allergy Verified 08/31/18 00:37 Active Meds: Active Medications Acetaminophen (Tylenol) 650 mg PO Q4H PRN PRN Reason: Pain MILD(1-3)/Fever >100.5/Z[place]UAGA Last Admin: 08/31/18 11:35 Dose: 650 mg Documented by: Enoxaparin Sodium (Lovenox) 40 mg SUB-Q QDAY@1000 [facility] Last Admin: 08/31/18 11:05 Dose: 40 mg Documented by: Piperacillin Sod/Tazobactam Sod (Zosyn/Ns 4.5gm/100ml) 4.5 gm in 100 mls @ 200 mls/hr IV Q8H [facility] Last Admin: 08/31/18 11:05 Dose: 200 mls/hr Documented by: Ondansetron HCl (Zofran) 4 mg IV Q8H PRN PRN Reason: Nausea And Vomiting Sodium Chloride (Sodium Chloride Flush Syringe 10 Ml) 10 ml IV BID [facility] Last Admin: 08/31/18 11:05 Dose: 10 ml Documented by: Sodium Chloride (Sodium Chloride Flush Syringe 10 Ml) 10 ml IV PRN PRN PRN Reason: LINE FLUSH Physical Examination Vital Signs Pulse Resp Pulse Ox 83 26 H 97 08/31/18 00:12 08/31/18 00:12 08/31/18 00:12 General appearance: no acute distress HEENT: Positive: PERRL Cardiac: Positive: Reg Rate and Rhythm Lungs: Positive: Decreased Breath Sounds Extremities: Present: Other (right BKA, left foot wound with wound vac in place) Results 08/30/18 23:28 08/31/18 10:54 Cardiac Enzymes 08/30/18 08/31/18 08/31/18 Range/Units 23:28 03:37 10:54 CK-MB (CK-2) 3.2 3.2 4.3 H (0.0-4.0) ng/mL Coagulation 08/30/18 Range/Units 23:28 PT 14.0 (12.2-14.9) Sec. INR 1.02 (0.87-1.13) APTT 34.6 (24.2-36.6) Sec. Lipids 08/30/18 Range/Units 23:28 Triglycerides 125 (2-149) mg/dL Cholesterol 155 (50-199) mg/dL HDL Cholesterol 53 (40-59) mg/dL Cholesterol/HDL Ratio 2.92 % CBC 08/30/18 Range/Units 23:28 WBC 20.5 H (4.5-11.0) K/mm3 RBC 3.48 L (3.65-5.03) M/mm3 Hgb 10.2 L (11.8-15.2) gm/dl Hct 29.1 L (35.5-45.6) % Plt Count 590 H (140-440) K/mm3 Comprehensive Metabolic Panel 08/30/18 08/31/18 08/31/18 Range/Units 23:28 00:37 03:37 Sodium 112 L* 110 L* (137-145) mmol/L Potassium 4.7 4.5 (3.6-5.0) mmol/L Chloride 81.1 L 79.5 L 82.6 L (98-107) mmol/L Carbon Dioxide 16 L 11 L (22-30) mmol/L BUN 14 14 (9-20) mg/dL Creatinine 0.9 0.9 (0.8-1.5) mg/dL Glucose 117 H 99 (75-100) mg/dL Calcium 8.6 8.0 L (8.4-10.2) mg/dL 08/31/18 08/31/18 Range/Units 07:19 10:54 Sodium 116 L* D 116 L* (137-145) mmol/L Potassium 4.6 5.1 H (3.6-5.0) mmol/L Chloride 83.9 L 85.2 L (98-107) mmol/L Carbon Dioxide 14 L 14 L (22-30) mmol/L BUN 14 15 (9-20) mg/dL Creatinine 0.9 1.0 (0.8-1.5) mg/dL Glucose 91 147 H (75-100) mg/dL Calcium 7.7 L 7.9 L (8.4-10.2) mg/dL
[2018-08-31] MEDS ORDERED: NACL 0.9% 1000 ML 1,000 ML ONE (14:23)
--- NOTE | 2018-08-31 14:59 | Consultation ---
History of Present Illness - Reason for Consult Consult date: 08/31/18 Osteomyelitis Requesting physician: BALA KUMARI - History of Present Illness The patient is a 63-year-old male with CHF, diabetes mellitus, alcohol abuse, prior right below-knee amputation has had 2 recent hospitalizations at [facility] due to pain, swelling and redness of the left lower extremity. He is known to have calcaneal osteomyelitis, was evaluated by Dr. Sutton and Regla there in 05/2018 and again during recent hospitalization in 07/2018. Patient is known to be noncompliant. He has been recommended an [id number] amputation (due to contracture not a BKA candidate) however has refused. Most recently, he underwent a local debridement by vascular surgery Dr. Fields on 07/28/2018, cultures grew "Enteric Karen". He also had blood cultures growing Staph epidermidis in 1/2 sets and C.perfringens in 1 set thought to be a contaminant. He was discharged on PO Augmentin x 6 weeks. Continued IV abx were thought to be of limited utility. Patient states he was discharged to rehab and now back home. He came to the hospital with multiple complaints including chest pain, arm pain and left leg swelling and pain. Here, he was noted to have leukocytosis of 20,000 and hence infectious diseases was consulted. He was also noted to be significantly hyponatremic. Patient has significant hygiene issues. Review of Systems: General: no fevers,chills or rigors HEENT: no new visual disturbance Respiratory: No cough, sputum, hemoptysis or shortness of breath Cardiovascular: No chest pain, syncope Gastrointestinal: No nausea, vomiting or diarrhea Genitourinary: No dysuria or hematuria Musculoskeletal: No new or worsening neck pain or back pain Neurologic: No headaches, seizures Hematologic: No easy bruising or bleeding Endocrine: No night sweats or acute weight loss Skin: negative for rash, jaundice Psychiatric: No suicidal or homicidal ideation Medications and Allergies Allergies Allergy/AdvReac Type Severity Reaction Status Date / Time No Known Allergies Allergy Verified 08/31/18 00:37 Active Meds: Active Medications Acetaminophen (Tylenol) 650 mg PO Q4H PRN PRN Reason: Pain MILD(1-3)/Fever >100.5/[place] Last Admin: 08/31/18 11:35 Dose: 650 mg Documented by: Enoxaparin Sodium (Lovenox) 40 mg SUB-Q QDAY@1000 [facility] Last Admin: 08/31/18 11:05 Dose: 40 mg Documented by: Piperacillin Sod/Tazobactam Sod (Zosyn/Ns 4.5gm/100ml) 4.5 gm in 100 mls @ 200 mls/hr IV Q8H [facility] Last Infusion: 08/31/18 12:59 Dose: Infused Documented by: Sodium Chloride (Nacl 0.9% 1000 Ml) 1,000 mls @ 100 mls/hr IV DIRECT [facility] Ondansetron HCl (Zofran) 4 mg IV Q8H PRN PRN Reason: Nausea And Vomiting Sodium Bicarbonate (Sodium Bicarbonate) 650 mg PO TID [facility] Sodium Chloride (Sodium Chloride Flush Syringe 10 Ml) 10 ml IV BID [facility] Last Admin: 08/31/18 11:05 Dose: 10 ml Documented by: Sodium Chloride (Sodium Chloride Flush Syringe 10 Ml) 10 ml IV PRN PRN PRN Reason: LINE FLUSH Physical Examination - Physical Exam Narrative exam: Physical Exam: Constitutional: Alert, cooperative. No acute distress Head, Ears, Nose: Normocephalic, atraumatic. External ears, nose normal Eyes: Conjunctivae/corneas clear. No icterus. No ptosis. Neck: Supple, no meningeal signs Oral: dentition poor, no thrush Cardiovascular: S1, S2 normal. Respiratory: Good air entry, clear to auscultation bilaterally GI: Soft, non-tender; bowel sounds normal. No peritoneal signs Musculoskeletal: R BKA well healed. Left foot with swelling, faint erythema, dressing and woundVAC + Skin: No rash or abscess Hem/Lymphatic: No palpable cervical or supraclavicular nodes. No lymphangitis Psych: Mood ok. Affect flat Neurological: Awake, alert, oriented. No gross abnormality - Constitutional Vitals: Vital Signs Temp Pulse Resp BP Pulse Ox 99 F 90 27 H 112/57 98 08/31/18 00:26 08/31/18 10:09 08/31/18 10:09 08/31/18 10:09 08/31/18 10:09 Temperature -Last 24 Hours Temperature 99 F Results - Labs CBC & Chem 7: 08/30/18 23:28 08/31/18 10:54 Labs: Abnormal lab results 08/30/18 08/30/18 08/31/18 Range/Units 23:28 23:28 00:37 WBC 20.5 H (4.5-11.0) K/mm3 RBC 3.48 L (3.65-5.03) M/mm3 Hgb 10.2 L (11.8-15.2) gm/dl Hct 29.1 L (35.5-45.6) % MCHC 35 H (32-34) % RDW 17.1 H (13.2-15.2) % Plt Count 590 H (140-440) K/mm3 Seg Neutrophils # Man 14.1 H (1.8-7.7) K/mm3 Monocytes # (Manual) 1.4 H (0.0-0.8) K/mm3 Basophils # (Manual) 0.2 H (0.0-0.1) K/mm3 VBG pH (7.320-7.420) Sodium 112 L* (137-145) mmol/L Potassium (3.6-5.0) mmol/L Chloride 81.1 L (98-107) mmol/L Carbon Dioxide 16 L (22-30) mmol/L Glucose 117 H (75-100) mg/dL Lactic Acid (0.7-2.0) mmol/L Calcium (8.4-10.2) mg/dL CK-MB (CK-2) (0.0-4.0) ng/mL CK-MB (CK-2) Rel Index 5.4 H (0-4) Troponin T 0.065 H 0.078 H (0.00-0.029) ng/mL Urine Chloride (110-250) mmolL 08/31/18 08/31/18 08/31/18 Range/Units 00:37 00:37 01:30 WBC (4.5-11.0) K/mm3 RBC (3.65-5.03) M/mm3 Hgb (11.8-15.2) gm/dl Hct (35.5-45.6) % MCHC (32-34) % RDW (13.2-15.2) % Plt Count (140-440) K/mm3 Seg Neutrophils # Man (1.8-7.7) K/mm3 Monocytes # (Manual) (0.0-0.8) K/mm3 Basophils # (Manual) (0.0-0.1) K/mm3 VBG pH (7.320-7.420) Sodium (137-145) mmol/L Potassium (3.6-5.0) mmol/L Chloride 79.5 L (98-107) mmol/L Carbon Dioxide (22-30) mmol/L Glucose (75-100) mg/dL Lactic Acid 2.30 H* 2.10 H* (0.7-2.0) mmol/L Calcium (8.4-10.2) mg/dL CK-MB (CK-2) (0.0-4.0) ng/mL CK-MB (CK-2) Rel Index (0-4) Troponin T (0.00-0.029) ng/mL Urine Chloride (110-250) mmolL 08/31/18 08/31/18 08/31/18 Range/Units 02:21 03:37 03:37 WBC (4.5-11.0) K/mm3 RBC (3.65-5.03) M/mm3 Hgb (11.8-15.2) gm/dl Hct (35.5-45.6) % MCHC (32-34) % RDW (13.2-15.2) % Plt Count (140-440) K/mm3 Seg Neutrophils # Man (1.8-7.7) K/mm3 Monocytes # (Manual) (0.0-0.8) K/mm3 Basophils # (Manual) (0.0-0.1) K/mm3 VBG pH (7.320-7.420) Sodium 110 L* (137-145) mmol/L Potassium (3.6-5.0) mmol/L Chloride 82.6 L (98-107) mmol/L Carbon Dioxide 11 L (22-30) mmol/L Glucose (75-100) mg/dL Lactic Acid 2.10 H* 2.40 H* (0.7-2.0) mmol/L Calcium 8.0 L (8.4-10.2) mg/dL CK-MB (CK-2) (0.0-4.0) ng/mL CK-MB (CK-2) Rel Index (0-4) Troponin T (0.00-0.029) ng/mL Urine Chloride (110-250) mmolL 08/31/18 08/31/18 08/31/18 Range/Units 03:37 05:04 06:46 WBC (4.5-11.0) K/mm3 RBC (3.65-5.03) M/mm3 Hgb (11.8-15.2) gm/dl Hct (35.5-45.6) % MCHC (32-34) % RDW (13.2-15.2) % Plt Count (140-440) K/mm3 Seg Neutrophils # Man (1.8-7.7) K/mm3 Monocytes # (Manual) (0.0-0.8) K/mm3 Basophils # (Manual) (0.0-0.1) K/mm3 VBG pH (7.320-7.420) Sodium (137-145) mmol/L Potassium (3.6-5.0) mmol/L Chloride (98-107) mmol/L Carbon Dioxide (22-30) mmol/L Glucose (75-100) mg/dL Lactic Acid (0.7-2.0) mmol/L Calcium (8.4-10.2) mg/dL CK-MB (CK-2) (0.0-4.0) ng/mL CK-MB (CK-2) Rel Index 5.1 H (0-4) Troponin T 0.061 H D 0.065 H (0.00-0.029) ng/mL Urine Chloride 10.0 L (110-250) mmolL 08/31/18 08/31/18 08/31/18 Range/Units 07:19 10:54 Unknown WBC (4.5-11.0) K/mm3 RBC (3.65-5.03) M/mm3 Hgb (11.8-15.2) gm/dl Hct (35.5-45.6) % MCHC (32-34) % RDW (13.2-15.2) % Plt Count (140-440) K/mm3 Seg Neutrophils # Man (1.8-7.7) K/mm3 Monocytes # (Manual) (0.0-0.8) K/mm3 Basophils # (Manual) (0.0-0.1) K/mm3 VBG pH 7.299 L (7.320-7.420) Sodium 116 L* D 116 L* (137-145) mmol/L Potassium 5.1 H (3.6-5.0) mmol/L Chloride 83.9 L 85.2 L (98-107) mmol/L Carbon Dioxide 14 L 14 L (22-30) mmol/L Glucose 147 H (75-100) mg/dL Lactic Acid (0.7-2.0) mmol/L Calcium 7.7 L 7.9 L (8.4-10.2) mg/dL CK-MB (CK-2) 4.3 H (0.0-4.0) ng/mL CK-MB (CK-2) Rel Index 5.8 H (0-4) Troponin T 0.078 H (0.00-0.029) ng/mL Urine Chloride (110-250) mmolL Assessment and Plan Cultures: 08/31/2018 blood culture: In progress Outside records reviewed from [facility] A/P: 63-year-old male with CHF, diabetes mellitus, alcohol abuse, prior right below- knee amputation has had 2 recent hospitalizations at [facility] due to pain, swelling and redness of the left lower extremity. He is known to have calcaneal osteomyelitis, was evaluated by Dr. Sutton and Regla there in 05/2018 and again during recent hospitalization in 07/2018. Patient is known to be noncompliant. He has been recommended an [id number] amputation (due to contracture not a BKA candidate) however has refused. Most recently, he underwent a local debridement by vascular surgery Dr. Fields, cultures grew "Enteric Karen". He also had blood cultures growing Staph epidermidis in 1/2 sets and C.perfringens in 1 set thought to be a contaminant. He was discharged on PO Augmentin x 6 weeks. Continued IV abx were thought to be of limited utility. Patient states he was discharged to rehab and now back home. Now admitted with: 1) Sepsis, lactic acidosis: Etiology unclear. 2) Hyponatremia: Nephrology consulted. 3) Chronic left heel osteomyelitis: vascular duplex did not show any significant stenosis. S/P local debridement by vascular surgery Dr. Fields on 07/28/2018. Refused amputation. 4) Perineal candidiasis: poor hygiene. Added Fluconazole. 5) Diarrhea/few loose stools: started upon arrival in ER. monitor for now, if they continue, will recommend C.diff PCR. At risk due to hospitalizations and abx exposure. Recs: empiric IV Cefepime and Vancomycin follow up cultures monitor diarrhea, if persistent, will check C.diff wound care PO Fluconazole added for perineal Candidiasis. Also ordered topical antifungal powder Will follow. d/w Dr. Dutta. Gutierrez Johnson [facility] C: [phone] O: [phone] F: [phone]
[2018-08-31] MEDS ORDERED: VANCOMYCIN PHARMACY TO DOSE IV SCH (17:00)
[2018-08-31] MEDS ORDERED: VANCOMYCIN 1,750 MG in NACL 0.9% 500 ML 500 ML IV ONE (18:00)
[2018-08-31 18:05] LABS: BUN/Creatinine Ratio 17; Blood Urea Nitrogen 17 mg/dL (9-20); Calcium 8.2 mg/dL (8.4-10.2); Hemolysis Index 5
[2018-08-31] MEDS: SODIUM BICARBONATE PO SCH ×2 (18:26→20:59)
[2018-08-31] MEDS: DIFLUCAN PO SCH (18:33)
[2018-08-31 21:18] LABS: BUN/Creatinine Ratio 17; Blood Urea Nitrogen 17 mg/dL (9-20); Calcium 8.1 mg/dL (8.4-10.2); Hemolysis Index 0
[2018-08-31] MEDS: MAXIPIME/NS 2 GM/100 ML 2 GM/100 ML BAG IV SCH (22:52)
[2018-08-31] MEDS: NACL 0.9% 1000 ML 1,000 ML IV SCH (22:52)
[2018-08-31] MEDS: NYSTOP TP SCH (22:52)
[2018-09-01] MEDS: TYLENOL PO PRN ×3 (05:20→21:00)
[2018-09-01 05:37] LABS: Basophils # (Auto) 0.1 K/mm3 (0.0-0.1); Eosinophils % (Auto) 7.4 % (0.0-4.3); Hematocrit 23.9 % (35.5-45.6); Lymphocytes # (Auto) 2.5 K/mm3 (1.2-5.4); Lymphocytes % (Auto) 19.3 % (13.4-35.0); Mean Corpuscular HGB Conc 33 % (32-34); Mean Corpuscular Volume 85 fl (84-94); Monocytes # (Auto) 0.8 K/mm3 (0.0-0.8); Monocytes % (Auto) 6.1 % (0.0-7.3); Platelet Count 537 K/mm3 (140-440); Red Blood Count 2.81 M/mm3 (3.65-5.03); Red Cell Distribution Width 17.6 % (13.2-15.2)
[2018-09-01 06:08] LABS: Alanine Aminotransferase 5 units/L (7-56); BUN/Creatinine Ratio 15; Blood Urea Nitrogen 16 mg/dL (9-20); Calcium 8.2 mg/dL (8.4-10.2); Hemolysis Index 2
[2018-09-01 06:19] LABS: Uric Acid 5.2 mg/dL (3.5-7.6)
[2018-09-01] MEDS: VANCOMYCIN 1,250 MG in NACL 0.9% 250ML 250 ML IV SCH ×2 (06:47→18:43)
--- NOTE | 2018-09-01 10:52 | Progress Note ---
Assessment and Plan 1. Hyponatremia: [place]ly hypoantremia 2/2 volume depletion. Started on 0.9% saline yesterday. Sodium level is gradually improving. Monitor Sodium level. 2. FEN: Metabolic acidosis,PO Sodium bicarbonate. Lactic acidosis, improved. Monitor lytes. 3. Sepsis: Chronic left heel osteomyelitis. Followed by ID. 4. Anemia: POA. Chronic. 5. Chronic diastolic CHF. 6. HTN. Subjective Date of service: 09/01/18 Interval history: Patient was seen and examined at the bedside. Doing ok. Objective - Vital Signs Vital signs: Vital Signs - 12hr 08/31/18 09/01/18 09/01/18 23:56 02:00 04:35 Temperature 98.1 F 97.4 F L Pulse Rate 95 H 91 H 94 H Respiratory 17 17 Rate Blood Pressure 143/70 137/72 O2 Sat by Pulse 98 98 Oximetry 09/01/18 09/01/18 08:06 08:07 Temperature 98.2 F Pulse Rate 85 Respiratory 18 Rate Blood Pressure 137/74 O2 Sat by Pulse 96 98 Oximetry - General Appearance General appearance: well-developed, appears stated age, other (no distress) EENT: ATNC, PERRL, mucous membranes moist, hearing intact, vision intact Neck: supple Respiratory: Present: Clear to Ascultation Cardiology: regular, S1S2, no murmurs Gastrointestinal: normoactive bowel sounds, no tenderness, no distended Integumentary: erythema (L foot) Neurologic: no focal deficit, no asterixis, alert and oriented x3 Musculoskeletal: other (L foot wound vac, R BKA) - Lab 09/01/18 05:00 09/01/18 05:00 Most recent lab results Calcium 8.2 mg/dL (8.4-10.2) L 09/01/18 05:00 Phosphorus 4.10 mg/dL (2.5-4.5) 09/01/18 05:00 Magnesium 1.80 mg/dL (1.7-2.3) 09/01/18 05:00 13.0 mg/dL (0.1-20.0) 08/31/18 06:46 14 mmol/L 08/31/18 06:46 Medications & Allergies - Medications Allergies/Adverse Reactions: Allergies No Known Allergies Allergy (Verified 08/31/18 00:37) Active Medications: Generic Name Dose Route Start Last Admin Trade Name Freq PRN Reason Stop Dose Admin Acetaminophen 650 mg 08/31/18 03:16 09/01/18 05:20 Tylenol PO 650 mg Q4H PRN Administration Pain MILD(1-3)/Fever >100.5/ZULUAGA Enoxaparin Sodium 40 mg 08/31/18 10:00 08/31/18 11:05 Lovenox SUB-Q 40 mg QDAY@1000 MATEO Administration Fluconazole 200 mg 08/31/18 17:00 08/31/18 18:33 Diflucan PO 200 mg QDAY MATEO Administration Sodium Chloride 1,000 mls @ 100 mls/hr 08/31/18 13:00 08/31/18 22:52 Nacl 0.9% 1000 Ml IV 100 mls/hr DIRECT MATEO Administration Cefepime HCl 2 gm in 100 mls @ 200 mls/hr 08/31/18 22:00 08/31/18 22:52 Maxipime/Ns 2 Gm/100 Ml IV 200 mls/hr Q12HR MATEO Administration Protocol Vancomycin HCl 1,250 mg/ 275 mls @ 183.333 mls/hr 09/01/18 06:00 09/01/18 06:47 Sodium Chloride IV 183.333 mls/hr Q12H MATEO Administration Protocol Nystatin 1 applic 08/31/18 22:00 08/31/18 22:52 Nystop TP 1 applic BID MATEO Administration Ondansetron HCl 4 mg 08/31/18 03:16 Zofran IV Q8H PRN Nausea And Vomiting Sodium Bicarbonate 650 mg 08/31/18 14:00 08/31/18 20:59 Sodium Bicarbonate PO Not Given TID MATEO Sodium Chloride 10 ml 08/31/18 10:00 08/31/18 22:53 Sodium Chloride Flush Syringe 10 Ml IV 10 ml BID MATEO Administration Sodium Chloride 10 ml 08/31/18 03:16 Sodium Chloride Flush Syringe 10 Ml IV PRN PRN LINE FLUSH
[2018-09-01] MEDS: LOVENOX SUB-Q SCH (11:03)
[2018-09-01] MEDS: SODIUM BICARBONATE PO SCH ×3 (11:03→20:00)
[2018-09-01] MEDS: SODIUM CHLORIDE FLUSH SYRINGE 10 ML IV SCH ×2 (11:05→22:00)
--- NOTE | 2018-09-01 11:10 | Progress Note ---
Assessment and Plan Cultures: 08/31/2018 blood culture: In progress Outside records reviewed from [facility] A/P: 63-year-old male with CHF, diabetes mellitus, alcohol abuse, prior right below- knee amputation has had 2 recent hospitalizations at [facility] due to pain, swelling and redness of the left lower extremity. He is known to have calcaneal osteomyelitis, was evaluated by Dr. Sutton and Regla there in 05/2018 and again during recent hospitalization in 07/2018. Patient is known to be noncompliant. He has been recommended an [id number] amputation (due to contracture not a BKA candidate) however has refused. Most recently, he underwent a local debridement by vascular surgery Dr. Fields, cultures grew "Enteric Karen". He also had blood cultures growing Staph epidermidis in 1/2 sets and C.perfringens in 1 set thought to be a contaminant. He was discharged on PO Augmentin x 6 weeks. Continued IV abx were thought to be of limited utility. Patient states he was discharged to rehab and now back home. Now admitted with: 1) Sepsis, lactic acidosis: Improved. Etiology unclear. 2) Hyponatremia: Nephrology consulted. 3) Chronic left heel osteomyelitis: vascular duplex did not show any significant stenosis. S/P local debridement by vascular surgery Dr. Fields on 07/28/2018. Refused amputation. 4) Perineal candidiasis: poor hygiene. Added Fluconazole. 5) Diarrhea/few loose stools: Resolved. started upon arrival in ER. monitor for now, if they continue, will recommend C.diff PCR. At risk due to hospitalizations and abx exposure. 60 Eosinophilia Recs: Continue IV Cefepime and Vancomycin follow up cultures wound care Continue PO Fluconazole and antifungal powder for perineal Candidiasis. CBC, WBC with Diff, ESR and CRP ordered for tomorrow [facility] M: [phone] O:[phone] Subjective Date of service: 09/01/18 Interval history: patient seen and examined. Sitting up in bed eating. Reports no generalized pain or weakness,, No fevers. Objective - Exam Narrative Exam: Constitutional: Alert, cooperative. No acute distress Head, Ears, Nose: Normocephalic, atraumatic. External ears, nose normal Eyes: Conjunctivae/corneas clear. No icterus. No ptosis. Neck: Supple, no meningeal signs Oral: dentition poor, no thrush Cardiovascular: S1, S2 normal. Respiratory: Good air entry, clear to auscultation bilaterally GI: Soft, non-tender; bowel sounds normal. No peritoneal signs Musculoskeletal: R BKA well healed. Left foot with swelling, faint erythema, dressing and woundVAC + Skin: No rash or abscess Hem/Lymphatic: No palpable cervical or supraclavicular nodes. No lymphangitis Psych: Mood ok. Affect flat Neurological: Awake, alert, oriented. No gross abnormality - Constitutional Vitals: Vital Signs Temp Pulse Resp BP Pulse Ox 98.2 F 85 18 137/74 98 09/01/18 08:06 09/01/18 08:06 09/01/18 08:06 09/01/18 08:06 09/01/18 08:07 Temperature -Last 24 Hours Temperature 98.2 F Temperature 97.4 F Temperature 98.1 F Temperature 97.7 F Temperature 97.5 F - Labs CBC & Chem 7: 09/01/18 05:00 09/01/18 Unknown Labs: Abnormal lab results 08/31/18 08/31/18 08/31/18 Range/Units 06:46 10:54 16:37 WBC (4.5-11.0) K/mm3 RBC (3.65-5.03) M/mm3 Hgb (11.8-15.2) gm/dl Hct (35.5-45.6) % RDW (13.2-15.2) % Plt Count (140-440) K/mm3 Eos % (Auto) (0.0-4.3) % Eos # (0.0-0.4) K/mm3 Seg Neutrophils # (1.8-7.7) K/mm3 Sodium 116 L* 117 L* (137-145) mmol/L Potassium 5.1 H (3.6-5.0) mmol/L Chloride 85.2 L 88.4 L (98-107) mmol/L Carbon Dioxide 14 L 16 L (22-30) mmol/L Glucose 147 H 110 H (75-100) mg/dL Calcium 7.9 L 8.2 L (8.4-10.2) mg/dL ALT (7-56) units/L CK-MB (CK-2) 4.3 H (0.0-4.0) ng/mL CK-MB (CK-2) Rel Index 5.8 H (0-4) Troponin T 0.078 H (0.00-0.029) ng/mL Total Protein (6.3-8.2) g/dL Albumin (3.9-5) g/dL Urine Chloride 10.0 L (110-250) mmolL 08/31/18 09/01/18 09/01/18 Range/Units 20:51 05:00 05:00 WBC 12.9 H (4.5-11.0) K/mm3 RBC 2.81 L (3.65-5.03) M/mm3 Hgb 8.0 L (11.8-15.2) gm/dl Hct 23.9 L (35.5-45.6) % RDW 17.6 H (13.2-15.2) % Plt Count 537 H (140-440) K/mm3 Eos % (Auto) 7.4 H (0.0-4.3) % Eos # 1.0 H (0.0-0.4) K/mm3 Seg Neutrophils # 8.5 H (1.8-7.7) K/mm3 Sodium 119 L* 124 L (137-145) mmol/L Potassium (3.6-5.0) mmol/L Chloride 89.3 L 95.5 L (98-107) mmol/L Carbon Dioxide 18 L 16 L (22-30) mmol/L Glucose 143 H 118 H (75-100) mg/dL Calcium 8.1 L 8.2 L (8.4-10.2) mg/dL ALT 5 L (7-56) units/L CK-MB (CK-2) (0.0-4.0) ng/mL CK-MB (CK-2) Rel Index (0-4) Troponin T (0.00-0.029) ng/mL Total Protein 6.0 L (6.3-8.2) g/dL Albumin 2.0 L (3.9-5) g/dL Urine Chloride (110-250) mmolL
[2018-09-01] MEDS ORDERED: D50W (25GM) Syringe IV PRN (11:20)
[2018-09-01] MEDS: MAXIPIME/NS 2 GM/100 ML 2 GM/100 ML BAG IV SCH (11:31)
[2018-09-01] MEDS: DIFLUCAN PO SCH (11:33)
[2018-09-01] MEDS: NYSTOP TP SCH ×2 (11:33→22:00)
--- NOTE | 2018-09-01 12:02 | Progress Note ---
Assessment and Plan Assessment and plan: 63 -year-old man who is a poor historian, most of history was obtained from the chart from [place]. He has a history of hypertension, diabetes, coronary artery disease, CHF, PVD comes to the ER for evaluation of left leg pain. He arrived to the ER covered in feces. He had multiple admission to [facility] for treatment of osteomylitis of calcaneus, non-compliant with treatment. His last admission he was treated with Unasyn, his cultures grew Staph Epi, repeat culture shows no growth, discharged on augmentin x 6 weeks to a rehab. He was discharged 3 to 4 days ago to home. today he complain of chest pain in the epigastric area, unable to give details. He denies nausea, vomiting, SOB, diaph oresis Sepsis/chronic left heel osteomyelitis Antibiotics per infectious disease Diabetes; cont insulins Sacral decub; cont wound care severe malnutrition; encourage improved diet Hyponatremia Continue normal saline Metabolic acidosis Continue oral bicarbonate tabs Anemia of chronic disease Chronic, treat underlying cause which is heel osteomyelitis Hypertension Continue bp meds History Interval history: Right foot swelling and pain is improved Review of systems Constitutional: No fevers, no malaise, no joint pains CVS: No chest pain, no orthopnea, no dyspnea on exertion, no pedal edema GI: No abdominal pain, no diarrhea, no vomiting, no constipation Respiratory: no wheezing, no coughing Hospitalist Physical - Physical exam Narrative exam: General.: Appears well, no distress, nontoxic, unkempt HEENT: Moist mucous membranes, extraocular muscles intact, no lymphadenopathy Neck: supple Cardiac: S1-S2 heard Lungs: clear to auscultation bilaterally Abdomen: soft , nontender, nondistended, bowel sounds positive Extremities: R BKA well healed. Left foot with swelling, faint erythema, dressing and woundVAC + Skin: no rash or lesions Neurologic: no gross focal deficits Psych: calm, and cooperative - Constitutional Vitals: Temp Pulse Resp BP Pulse Ox 97.9 F 88 18 129/89 98 09/01/18 11:10 09/01/18 11:10 09/01/18 11:10 09/01/18 11:10 09/01/18 11:10 General appearance: Present: no acute distress Results - Labs CBC & Chem 7: 09/02/18 01:38 09/02/18 04:57 Labs: Laboratory Last Values WBC 12.9 K/mm3 (4.5-11.0) H 09/01/18 05:00 RBC 2.81 M/mm3 (3.65-5.03) L 09/01/18 05:00 Hgb 8.0 gm/dl (11.8-15.2) L 09/01/18 05:00 Hct 23.9 % (35.5-45.6) L 09/01/18 05:00 MCV 85 fl (84-94) 09/01/18 05:00 MCH 28 pg (28-32) 09/01/18 05:00 MCHC 33 % (32-34) 09/01/18 05:00 RDW 17.6 % (13.2-15.2) H 09/01/18 05:00 Plt Count 537 K/mm3 (140-440) H 09/01/18 05:00 Lymph % (Auto) 19.3 % (13.4-35.0) 09/01/18 05:00 [place] % (Auto) 6.1 % (0.0-7.3) 09/01/18 05:00 Eos % (Auto) 7.4 % (0.0-4.3) H 09/01/18 05:00 Baso % (Auto) 1.0 % (0.0-1.8) 09/01/18 05:00 Lymph # 2.5 K/mm3 (1.2-5.4) 09/01/18 05:00 [place] # 0.8 K/mm3 (0.0-0.8) 09/01/18 05:00 Eos # 1.0 K/mm3 (0.0-0.4) H 09/01/18 05:00 Baso # 0.1 K/mm3 (0.0-0.1) 09/01/18 05:00 Add Manual Diff Complete 08/30/18 23:28 Total Counted 100 08/30/18 23:28 Seg Neutrophils % 66.2 % (40.0-70.0) 09/01/18 05:00 Seg Neuts % (Manual) 69.0 % (40.0-70.0) 08/30/18 23:28 0 % 08/30/18 23:28 22.0 % (13.4-35.0) 08/30/18 23:28 Reactive Lymphs % (Man) 0 % 08/30/18 23:28 7.0 % (0.0-7.3) 08/30/18 23:28 1.0 % (0.0-4.3) 08/30/18 23:28 1.0 % (0.0-1.8) 08/30/18 23:28 0 % 08/30/18 23:28 0 % 08/30/18 23:28 0 % 08/30/18 23:28 0 % 08/30/18 23:28 Nucleated RBC % Not Reportable 08/30/18 23:28 Seg Neutrophils # 8.5 K/mm3 (1.8-7.7) H 09/01/18 05:00 Seg Neutrophils # Man 14.1 K/mm3 (1.8-7.7) H 08/30/18 23:28 Band Neutrophils # 0.0 K/mm3 08/30/18 23:28 4.5 K/mm3 (1.2-5.4) 08/30/18 23:28 Abs React Lymphs (Man) 0.0 K/mm3 08/30/18 23:28 1.4 K/mm3 (0.0-0.8) H 08/30/18 23:28 0.2 K/mm3 (0.0-0.4) 08/30/18 23:28 0.2 K/mm3 (0.0-0.1) H 08/30/18 23:28 0.0 K/mm3 08/30/18 23:28 0.0 K/mm3 08/30/18 23:28 0.0 K/mm3 08/30/18 23:28 Blast Cells # 0.0 K/mm3 08/30/18 23:28 WBC Morphology Not Reportable 08/30/18 23:28 Hypersegmented Neuts Not Reportable 08/30/18 23:28 Hyposegmented Neuts Not Reportable 08/30/18 23:28 Hypogranular Neuts Not Reportable 08/30/18 23:28 Not Reportable 08/30/18 23:28 Not Reportable 08/30/18 23:28 Not Reportable 08/30/18 23:28 Not Reportable 08/30/18 23:28 Not Reportable 08/30/18 23:28 Not Reportable 08/30/18 23:28 Not Reportable 08/30/18 23:28 Not Reportable 08/30/18 23:28 Plt Clumps, EDTA Not Reportable 08/30/18 23:28 Not Reportable 08/30/18 23:28 Not Reportable 08/30/18 23:28 Not Reportable 08/30/18 23:28 Plt Morphology Comment Not Reportable 08/30/18 23:28 RBC Morphology Normal 08/30/18 23:28 Dimorphic RBCs Not Reportable 08/30/18 23:28 Not Reportable 08/30/18 23:28 Not Reportable 08/30/18 23:28 Not Reportable 08/30/18 23:28 Not Reportable 08/30/18 23:28 Not Reportable 08/30/18 23:28 Not Reportable 08/30/18 23:28 Not Reportable 08/30/18 23:28 Not Reportable 08/30/18 23:28 Not Reportable 08/30/18 23:28 Not Reportable 08/30/18 23:28 Not Reportable 08/30/18 23:28 Not Reportable 08/30/18 23:28 Not Reportable 08/30/18 23:28 Not Reportable 08/30/18 23:28 Not Reportable 08/30/18 23:28 Not Reportable 08/30/18 23:28 Not Reportable 08/30/18 23:28 Not Reportable 08/30/18 23:28 Not Reportable 08/30/18 23:28 Acanthocytes (Spur) Not Reportable 08/30/18 23:28 Rouleaux Not Reportable 08/30/18 23:28 Not Reportable 08/30/18 23:28 Not Reportable 08/30/18 23:28 Not Reportable 08/30/18 23:28 Not Reportable 08/30/18 23:28 Hem Pathologist Commnt No 08/30/18 23:28 PT 14.0 Sec. (12.2-14.9) 08/30/18 23:28 INR 1.02 (0.87-1.13) 08/30/18 23:28 APTT 34.6 Sec. (24.2-36.6) 08/30/18 23:28 VBG pH 7.299 (7.320-7.420) L 08/31/18 Unknown Sodium 124 mmol/L (137-145) L 09/01/18 05:00 Potassium 4.4 mmol/L (3.6-5.0) 09/01/18 05:00 Chloride 95.5 mmol/L (98-107) L 09/01/18 05:00 Carbon Dioxide 16 mmol/L (22-30) L 09/01/18 05:00 17 mmol/L 09/01/18 05:00 BUN 16 mg/dL (9-20) 09/01/18 05:00 1.1 mg/dL (0.8-1.5) 09/01/18 05:00 Estimated GFR > 60 ml/min 09/01/18 05:00 15 % 09/01/18 05:00 Glucose 118 mg/dL (75-100) H 09/01/18 05:00 278 Mosm/kg 08/31/18 00:37 Lactic Acid 1.30 mmol/L (0.7-2.0) 08/31/18 05:04 5.2 mg/dL (3.5-7.6) 09/01/18 05:00 Calcium 8.2 mg/dL (8.4-10.2) L 09/01/18 05:00 Phosphorus 4.10 mg/dL (2.5-4.5) 09/01/18 05:00 Magnesium 1.80 mg/dL (1.7-2.3) 09/01/18 05:00 < 0.20 mg/dL (0.1-1.2) 09/01/18 05:00 AST 10 units/L (5-40) 09/01/18 05:00 ALT 5 units/L (7-56) L 09/01/18 05:00 73 units/L (35-129) 09/01/18 05:00 74 units/L (55-170) 08/31/18 10:54 CK-MB (CK-2) 4.3 ng/mL (0.0-4.0) H 08/31/18 10:54 CK-MB (CK-2) Rel Index 5.8 (0-4) H 08/31/18 10:54 0.078 ng/mL (0.00-0.029) H 08/31/18 10:54 6.0 g/dL (6.3-8.2) L 09/01/18 05:00 2.0 g/dL (3.9-5) L 09/01/18 05:00 0.5 % 09/01/18 05:00 Triglycerides 125 mg/dL (2-149) 08/30/18 23:28 Cholesterol 155 mg/dL (50-199) 08/30/18 23:28 88 mg/dL (50-130) 08/30/18 23:28 53 mg/dL (40-59) 08/30/18 23:28 2.92 % 08/30/18 23:28 Straw (Yellow) 08/31/18 06:46 Clear (Clear) 08/31/18 06:46 6.0 (5.0-7.0) 08/31/18 06:46 Ur Specific [place] 1.009 (1.003-1.030) 08/31/18 06:46 30 mg/dl mg/dL (Negative) 08/31/18 06:46 Neg mg/dL (Negative) 08/31/18 06:46 Neg mg/dL (Negative) 08/31/18 06:46 Lg (Negative) 08/31/18 06:46 Neg (Negative) 08/31/18 06:46 Neg (Negative) 08/31/18 06:46 < 2.0 mg/dL (<2.0) 08/31/18 06:46 Ur Leukocyte Esterase Neg (Negative) 08/31/18 06:46 2.0 /HPF (0.0-6.0) 08/31/18 06:46 13.0 /HPF (0.0-6.0) 08/31/18 06:46 1+ /HPF (Negative) 08/31/18 06:46 Few /HPF 08/31/18 06:46 114 Mosm/kg 08/31/18 06:46 13.0 mg/dL (0.1-20.0) 08/31/18 06:46 14 mmol/L 08/31/18 06:46 10.0 mmolL (110-250) L 08/31/18 06:46 Active Medications - Current Medications Current Medications: Generic Name Dose Route Start Last Admin Trade Name Freq PRN Reason Stop Dose Admin Acetaminophen 650 mg 08/31/18 03:16 09/01/18 05:20 Tylenol PO 650 mg Q4H PRN Administration Pain MILD(1-3)/Fever >100.5/ZULUAGA Dextrose 50 ml 09/01/18 11:20 D50w (25gm) Syringe IV PRN PRN Hypoglycemia Enoxaparin Sodium 40 mg 08/31/18 10:00 09/01/18 11:03 Lovenox SUB-Q 40 mg QDAY@1000 MATEO Administration Fluconazole 200 mg 08/31/18 17:00 09/01/18 11:33 Diflucan PO 200 mg QDAY MATEO Administration Sodium Chloride 1,000 mls @ 100 mls/hr 08/31/18 13:00 08/31/18 22:52 Nacl 0.9% 1000 Ml IV 100 mls/hr DIRECT MATEO Administration Cefepime HCl 2 gm in 100 mls @ 200 mls/hr 08/31/18 22:00 09/01/18 11:31 Maxipime/Ns 2 Gm/100 Ml IV 200 mls/hr Q12HR MATEO Administration Protocol Vancomycin HCl 1,250 mg/ 275 mls @ 183.333 mls/hr 09/01/18 06:00 09/01/18 06:47 Sodium Chloride IV 183.333 mls/hr Q12H MATEO Administration Protocol Insulin Human Lispro 0 unit 09/01/18 11:30 Humalog SUB-Q AC [facility] Protocol Insulin Human Regular 0 units 09/01/18 22:00 Humulin R SUB-Q QHS [facility] Protocol Nystatin 1 applic 08/31/18 22:00 09/01/18 11:33 Nystop TP 1 applic BID MATEO Administration Ondansetron HCl 4 mg 08/31/18 03:16 Zofran IV Q8H PRN Nausea And Vomiting Sodium Bicarbonate 650 mg 08/31/18 14:00 09/01/18 11:03 Sodium Bicarbonate PO 650 mg TID MATEO Administration Sodium Chloride 10 ml 08/31/18 10:00 09/01/18 11:05 Sodium Chloride Flush Syringe 10 Ml IV 10 ml BID MATEO Administration Sodium Chloride 10 ml 08/31/18 03:16 Sodium Chloride Flush Syringe 10 Ml IV PRN PRN LINE FLUSH
[2018-09-01] MEDS: HumaLOG SUB-Q SCH ×2 (13:23→16:53)
[2018-09-01 15:37] LABS: BUN/Creatinine Ratio 13; Blood Urea Nitrogen 14 mg/dL (9-20); Calcium 8.3 mg/dL (8.4-10.2); Hemolysis Index 0
[2018-09-01] MEDS: NACL 0.9% 1000 ML 1,000 ML IV SCH (16:59)
[2018-09-01] MEDS ORDERED: HumuLIN R SUB-Q SCH (22:00)
[2018-09-02] MEDS: MAXIPIME/NS 2 GM/100 ML 2 GM/100 ML BAG IV SCH ×2 (01:29→09:59)
[2018-09-02 02:43] LABS: Basophils % (Auto) 0.6 % (0.0-1.8); Hematocrit 23.1 % (35.5-45.6); Hemoglobin 7.6 gm/dl (11.8-15.2); Lymphocytes % (Auto) 30.9 % (13.4-35.0); Mean Corpuscular HGB Conc 33 % (32-34); Mean Corpuscular Volume 86 fl (84-94); Monocytes % (Auto) 6.8 % (0.0-7.3); Platelet Count 550 K/mm3 (140-440); Red Blood Count 2.67 M/mm3 (3.65-5.03); Red Cell Distribution Width 18.2 % (13.2-15.2)
[2018-09-02 02:44] LABS: Basophils # (Auto) 0.1 K/mm3 (0.0-0.1); Eosinophils # (Auto) 1.5 K/mm3 (0.0-0.4); Lymphocytes # (Auto) 3.9 K/mm3 (1.2-5.4); Monocytes # (Auto) 0.9 K/mm3 (0.0-0.8)
[2018-09-02] MEDS: TYLENOL PO PRN ×2 (03:06→08:59)
[2018-09-02 04:15] LABS: Erythrocyte Sedimentation Rate > 140.0 mm/Hr (0-20)
[2018-09-02] MEDS ORDERED: APRESOLINE IV PRN (04:46)
[2018-09-02] MEDS: VANCOMYCIN 1,250 MG in NACL 0.9% 250ML 250 ML IV SCH (05:35)
[2018-09-02 05:39] LABS: BUN/Creatinine Ratio 12; Blood Urea Nitrogen 12 mg/dL (9-20); Calcium 8.4 mg/dL (8.4-10.2); Hemolysis Index 2
[2018-09-02] MEDS: NACL 0.9% 1000 ML 1,000 ML IV SCH (05:56)
[2018-09-02] MEDS: HumaLOG SUB-Q SCH ×2 (08:00→11:30)
[2018-09-02] MEDS: SODIUM BICARBONATE PO SCH ×2 (08:58→13:23)
--- NOTE | 2018-09-02 09:30 | Progress Note ---
Assessment and Plan 1. Hyponatremia: [place] hypoantremia 2/2 volume depletion. Sodium level is gradually improving. Sodium level is better. Monitor Sodium level. 2. FEN: Metabolic acidosis,PO Sodium bicarbonate. Lactic acidosis, improved. Monitor lytes. 3. Sepsis: Chronic left heel osteomyelitis. Followed by ID. 4. Anemia: POA. Chronic. 5. Chronic diastolic CHF. 6. HTN. Subjective Date of service: 09/02/18 Interval history: Patient was seen and examined at the bedside. Doing ok. Objective - Vital Signs Vital signs: Vital Signs - 12hr 09/01/18 09/01/18 09/02/18 22:00 23:34 03:06 Temperature 97.6 F Pulse Rate 88 Respiratory 18 16 20 Rate Blood Pressure 169/80 Blood Pressure [Left] O2 Sat by Pulse 97 Oximetry 09/02/18 09/02/18 09/02/18 04:06 04:08 04:58 Temperature 98.3 F 98.3 F Pulse Rate 89 88 Respiratory 20 16 20 Rate Blood Pressure 182/84 Blood Pressure 178/84 [Left] O2 Sat by Pulse 96 97 Oximetry 09/02/18 09/02/18 09/02/18 05:36 06:30 08:05 Temperature 98.2 F Pulse Rate 88 88 Respiratory 18 Rate Blood Pressure 178/84 151/85 Blood Pressure 134/72 [Left] O2 Sat by Pulse 100 Oximetry - General Appearance General appearance: well-developed, appears stated age, other (no distress) EENT: ATNC, PERRL, mucous membranes moist, hearing intact, vision intact Neck: supple Respiratory: Present: Clear to Ascultation Cardiology: regular, S1S2, no murmurs Gastrointestinal: normoactive bowel sounds, no tenderness, no distended Integumentary: erythema (R leg), other (R foot covered with dressing, wound vac +) Neurologic: no asterixis, alert and oriented x3 Musculoskeletal: other (no edema, R BKA) - Lab 09/02/18 01:38 09/02/18 04:57 Most recent lab results Calcium 8.4 mg/dL (8.4-10.2) 09/02/18 04:57 Phosphorus 4.10 mg/dL (2.5-4.5) 09/01/18 05:00 Magnesium 1.80 mg/dL (1.7-2.3) 09/01/18 05:00 13.0 mg/dL (0.1-20.0) 08/31/18 06:46 14 mmol/L 08/31/18 06:46 Medications & Allergies - Medications Allergies/Adverse Reactions: Allergies No Known Allergies Allergy (Verified 08/31/18 00:37) Home Medications: Home Medications Medication Instructions Recorded Confirmed Last Taken Type Fluconazole [Diflucan TAB] 200 mg PO QDAY #7 tablet 09/02/18 Unknown Rx Nystatin [Nystop Powder] 1 applic TP BID 30 Days powder 09/02/18 Unknown Rx Sodium Bicarbonate 650 mg PO TID #90 tablet 09/02/18 Unknown Rx cephALEXin [Keflex] 500 mg PO Q6HR 7 Days #28 capsule 09/02/18 Unknown Rx oxyCODONE /ACETAMINOPHEN [Percocet 1 tab PO Q6HR PRN #14 tablet 09/02/18 Unknown Rx 5/325] Active Medications: Generic Name Dose Route Start Last Admin Trade Name Freq PRN Reason Stop Dose Admin Acetaminophen 650 mg 08/31/18 03:16 09/02/18 08:59 Tylenol PO 650 mg Q4H PRN Administration Pain MILD(1-3)/Fever >100.5/ZULUAGA Dextrose 50 ml 09/01/18 11:20 D50w (25gm) Syringe IV PRN PRN Hypoglycemia Enoxaparin Sodium 40 mg 08/31/18 10:00 09/01/18 11:03 Lovenox SUB-Q 40 mg QDAY@1000 MATEO Administration Fluconazole 200 mg 08/31/18 17:00 09/01/18 11:33 Diflucan PO 200 mg QDAY MATEO Administration Hydralazine HCl 10 mg 09/02/18 04:46 09/02/18 05:36 Apresoline IV 10 mg Q4H PRN Administration Hypertension Sodium Chloride 1,000 mls @ 100 mls/hr 08/31/18 13:00 09/02/18 05:56 Nacl 0.9% 1000 Ml IV 100 mls/hr DIRECT MATEO Administration Cefepime HCl 2 gm in 100 mls @ 200 mls/hr 08/31/18 22:00 09/02/18 01:29 Maxipime/Ns 2 Gm/100 Ml IV 200 mls/hr Q12HR MATEO Administration Protocol Vancomycin HCl 1,250 mg/ 275 mls @ 183.333 mls/hr 09/01/18 06:00 09/02/18 05:35 Sodium Chloride IV 183.333 mls/hr Q12H MATEO Administration Protocol Insulin Human Lispro 0 unit 09/01/18 11:30 09/02/18 08:00 Humalog SUB-Q Not Given AC MATEO Protocol Insulin Human Regular 0 units 09/01/18 22:00 09/01/18 22:00 Humulin R SUB-Q 1 units QHS MATEO Administration Protocol Nystatin 1 applic 08/31/18 22:00 09/01/18 22:00 Nystop TP 1 applic BID MATEO Administration Ondansetron HCl 4 mg 08/31/18 03:16 Zofran IV Q8H PRN Nausea And Vomiting Sodium Bicarbonate 650 mg 08/31/18 14:00 09/02/18 08:58 Sodium Bicarbonate PO 650 mg TID MATEO Administration Sodium Chloride 10 ml 08/31/18 10:00 09/01/18 22:00 Sodium Chloride Flush Syringe 10 Ml IV 10 ml BID MATEO Administration Sodium Chloride 10 ml 08/31/18 03:16 Sodium Chloride Flush Syringe 10 Ml IV PRN PRN LINE FLUSH
[2018-09-02] MEDS: LOVENOX SUB-Q SCH (09:58)
[2018-09-02] MEDS: SODIUM CHLORIDE FLUSH SYRINGE 10 ML IV SCH (09:59)
[2018-09-02] MEDS: NYSTOP TP SCH (09:59)
[2018-09-02] MEDS: DIFLUCAN PO SCH (10:01)
--- NOTE | 2018-09-02 10:30 | Progress Note ---
Assessment and Plan Cultures: 08/31/2018 blood culture: In progress Outside records reviewed from [facility] A/P: 63-year-old male with CHF, diabetes mellitus, alcohol abuse, prior right below- knee amputation has had 2 recent hospitalizations at [facility] due to pain, swelling and redness of the left lower extremity. He is known to have calcaneal osteomyelitis, was evaluated by Dr. Sutton and Regla there in 05/2018 and again during recent hospitalization in 07/2018. Patient is known to be noncompliant. He has been recommended an lould-zez-ppkn amputation (due to contracture not a BKA candidate) however has refused. Most recently, he underwent a local debridement by vascular surgery Dr. Fields, cultures grew "Enteric Karen". He also had blood cultures growing Staph epidermidis in 1/2 sets and C.perfringens in 1 set thought to be a contaminant. He was discharged on PO Augmentin x 6 weeks. Continued IV abx were thought to be of limited utility. Patient states he was discharged to rehab and now back home. Now admitted with: 1) Sepsis, lactic acidosis: Resolved. Etiology unclear. 2) Hyponatremia: Nephrology consulted. 3) Chronic left heel osteomyelitis: vascular duplex did not show any significant stenosis. S/P local debridement by vascular surgery Dr. Fields on 07/28/2018. Refused amputation. ESR >140. CRP 5.1. 4) Perineal candidiasis: poor hygiene. Added Fluconazole. 5) Diarrhea/few loose stools: Resolved. started upon arrival in ER. monitor for now, if they continue, will recommend C.diff PCR. At risk due to hospitalizations and abx exposure. 59 Eosinophilia: worsening Recs: Discontinue IV Cefepime and Vancomycin Continue PO Fluconazole and antifungal powder for perineal Candidiasis. Anticipate discharge on Keflex 500mg PO QID for 7 days and Fluconazole 200mg PO qday for 7 days. Continue wound care and Wound Vac Ok to discharge from ID standpoint- prescriptions on the chart [employer] M: [phone] O:[phone] Subjective Date of service: 09/02/18 Interval history: patient seen and examined. Sitting up in bed eating. Reports no generalized pain or weakness,, No fevers. Objective - Exam Narrative Exam: Constitutional: Alert, cooperative. No acute distress Head, Ears, Nose: Normocephalic, atraumatic. External ears, nose normal Eyes: Conjunctivae/corneas clear. No icterus. No ptosis. Neck: Supple, no meningeal signs Oral: dentition poor, no thrush Cardiovascular: S1, S2 normal. Respiratory: Good air entry, clear to auscultation bilaterally GI: Soft, non-tender; bowel sounds normal. No peritoneal signs Musculoskeletal: R BKA well healed. Left foot with swelling, faint erythema, dressing and woundVAC + Skin: No rash or abscess Hem/Lymphatic: No palpable cervical or supraclavicular nodes. No lymphangitis Psych: Mood ok. Affect flat Neurological: Awake, alert, oriented. No gross abnormality - Constitutional Vitals: Vital Signs Temp Pulse Resp BP Pulse Ox 98.2 F 85 18 151/85 100 09/02/18 08:05 09/02/18 10:00 09/02/18 08:05 09/02/18 08:05 09/02/18 08:05 Temperature -Last 24 Hours Temperature 98.2 F Temperature 98.3 F Temperature 98.3 F Temperature 97.6 F Temperature 98.5 F Temperature 97.9 F Temperature 97.9 F - Labs CBC & Chem 7: 09/02/18 01:38 09/02/18 04:57 Labs: Abnormal lab results 09/01/18 09/01/18 09/01/18 Range/Units 11:09 11:11 16:48 WBC (4.5-11.0) K/mm3 RBC (3.65-5.03) M/mm3 Hgb (11.8-15.2) gm/dl Hct (35.5-45.6) % RDW (13.2-15.2) % Plt Count (140-440) K/mm3 Eos % (Auto) (0.0-4.3) % Morrison # (0.0-0.8) K/mm3 Eos # (0.0-0.4) K/mm3 Sodium (137-145) mmol/L Carbon Dioxide (22-30) mmol/L Glucose (75-100) mg/dL POC Glucose 500 H 388 H 125 H (70-105) Hemoglobin A1c (4-6) % Calcium (8.4-10.2) mg/dL C-Reactive Protein (0.00-1.30) mg/dL 09/01/18 09/01/18 09/02/18 Range/Units 20:54 Unknown 01:38 WBC 12.6 H (4.5-11.0) K/mm3 RBC 2.67 L (3.65-5.03) M/mm3 Hgb 7.6 L (11.8-15.2) gm/dl Hct 23.1 L (35.5-45.6) % RDW 18.2 H (13.2-15.2) % Plt Count 550 H (140-440) K/mm3 Eos % (Auto) 12.0 H (0.0-4.3) % Morrison # 0.9 H (0.0-0.8) K/mm3 Eos # 1.5 H (0.0-0.4) K/mm3 Sodium 129 L (137-145) mmol/L Carbon Dioxide 19 L (22-30) mmol/L Glucose 59 L (75-100) mg/dL POC Glucose 157 H (70-105) Hemoglobin A1c (4-6) % Calcium 8.3 L (8.4-10.2) mg/dL C-Reactive Protein (0.00-1.30) mg/dL 09/02/18 09/02/18 09/02/18 Range/Units 01:38 04:57 04:57 WBC (4.5-11.0) K/mm3 RBC (3.65-5.03) M/mm3 Hgb (11.8-15.2) gm/dl Hct (35.5-45.6) % RDW (13.2-15.2) % Plt Count (140-440) K/mm3 Eos % (Auto) (0.0-4.3) % Morrison # (0.0-0.8) K/mm3 Eos # (0.0-0.4) K/mm3 Sodium 130 L (137-145) mmol/L Carbon Dioxide 18 L (22-30) mmol/L Glucose 112 H (75-100) mg/dL POC Glucose (70-105) Hemoglobin A1c < 4.0 L (4-6) % Calcium (8.4-10.2) mg/dL C-Reactive Protein 5.10 H (0.00-1.30) mg/dL 09/02/18 Range/Units 08:13 WBC (4.5-11.0) K/mm3 RBC (3.65-5.03) M/mm3 Hgb (11.8-15.2) gm/dl Hct (35.5-45.6) % RDW (13.2-15.2) % Plt Count (140-440) K/mm3 Eos % (Auto) (0.0-4.3) % Morrison # (0.0-0.8) K/mm3 Eos # (0.0-0.4) K/mm3 Sodium (137-145) mmol/L Carbon Dioxide (22-30) mmol/L Glucose (75-100) mg/dL POC Glucose 119 H (70-105) Hemoglobin A1c (4-6) % Calcium (8.4-10.2) mg/dL C-Reactive Protein (0.00-1.30) mg/dL
[2018-09-02 12:11] VITALS: BP 153/73
--- NOTE | 2018-09-02 13:02 | Discharge Summary ---
<DARIAN RODAS E - Last Filed: 09/02/18 16:21> Providers - Providers Date of Admission: 08/31/18 03:16 Attending physician: NAIDA CASEY MD 08/31/18 03:16 Consult to Physician [CONS] Routine Comment: Dr. Salgado spoke with Dr. Bowman @ 0513 Consulting Provider: MARYJANE BOWMAN Physician Instructions: Reason For Exam: hyponatremia 08/31/18 05:27 Consult to Physician [CONS] Routine Comment: Consulting Provider: MODESTA OHARA Physician Instructions: Reason For Exam: osteo 08/31/18 06:24 Consult to Wound/ET Nurse [CONS] Routine Reason For Exam: wound eval 09/01/18 11:20 Consult to Dietitian/Nutrition [CONS] Routine Physician Instructions: Reason For Exam: Reason for Consult: Diet education [facility] Condition: Stable Disposition: DC/TX-06 HOME UNDER HOME HLTH Exam - Constitutional Vitals: Temp Pulse Resp BP Pulse Ox 98.0 F 83 18 153/73 99 09/02/18 12:08 09/02/18 12:08 09/02/18 12:08 09/02/18 12:08 09/02/18 12:08 Plan Follow [facility] with[facility] [Primary Care Provider] - 3-5 Days Prescriptions: Fluconazole [Diflucan TAB] 200 mg PO QDAY #7 tablet cephALEXin [Keflex] 500 mg PO Q6HR 7 Days #28 capsule Nystatin [Nystop Powder] 1 applic TP BID 30 Days powder oxyCODONE /ACETAMINOPHEN [Percocet 5/325] 1 tab PO Q6HR PRN #14 tablet PRN Reason: Pain Sodium Bicarbonate 650 mg PO TID #90 tablet <NAIDA CASEY - Last Filed: 10/05/18 08:29> Providers - Providers Date of Admission: 08/31/18 03:16 Attending physician: NAIDA CASEY MD 08/31/18 03:16 Consult to Physician [CONS] Routine Comment: Dr. Salgado spoke with Dr. Bowman @ 0513 Consulting Provider: MARYJANE BOWMAN Physician Instructions: Reason For Exam: hyponatremia 08/31/18 05:27 Consult to Physician [CONS] Routine Comment: Consulting Provider: MODESTA OHARA Physician Instructions: Reason For Exam: osteo 08/31/18 06:24 Consult to Wound/ET Nurse [CONS] Routine Reason For Exam: wound eval 09/01/18 11:20 Consult to Dietitian/Nutrition [CONS] Routine Physician Instructions: Reason For Exam: Reason for Consult: Diet education [facility]: [facility] Hospitalization Hospital course: 63 -year-old man who is a poor historian, most of history was obtained from the chart from [place]. He has a history of hypertension, diabetes, coronary artery disease, CHF, PVD comes to the ER for evaluation of left leg pain. He arrived to the ER covered in feces. He had multiple admission to [facility] for treatment of osteomylitis of calcaneus, non-compliant with treatment. His last admission he was treated with Unasyn, his cultures grew Staph Epi, repeat culture shows no growth, discharged on augmentin x 6 weeks to a rehab. He was discharged 3 to 4 days ago to home. today he complain of chest pain in the epigastric area, unable to give details. He denies nausea, vomiting, SOB, diaphoresis Sepsis/chronic left heel osteomyelitis Antibiotics per infectious disease, he was rx with IV abx and transitioned to po abx prior to dc Diabetes; cont insulins Sacral decub; cont wound care severe malnutrition; encourage improved diet Hyponatremia Continue normal saline Metabolic acidosis Continue oral bicarbonate tabs Anemia of chronic disease Chronic, treat underlying cause which is heel osteomyelitis Hypertension Continue bp meds Time spent for discharge: 33 mins Core Measure Documentation - Palliative Care Palliative Care/ Comfort Measures: Not Applicable - Core Measures Any of the following diagnoses?: none Exam - Physical Exam Narrative exam: General.: Appears well, no distress, nontoxic, unkempt HEENT: Moist mucous membranes, extraocular muscles intact, no lymphadenopathy Neck: supple Cardiac: S1-S2 heard Lungs: clear to auscultation bilaterally Abdomen: soft , nontender, nondistended, bowel sounds positive Extremities: R BKA well healed. Left foot with swelling, faint erythema, dressing and woundVAC + Skin: no rash or lesions Neurologic: no gross focal deficits Psych: calm, and cooperative - Constitutional Vitals: Temp Pulse Resp BP Pulse Ox 98.0 F 83 18 153/73 99 09/02/18 12:08 09/02/18 12:08 09/02/18 12:08 09/02/18 12:08 09/02/18 12:08
== END 2018-09-02 16:53 | disposition home health service (06) | DRG 871 ==
LOC: ED 22:50 → 4A 08-31 03:16
PROVIDERS: ADMIT Internal Medicine; ATTEND Internal Medicine
DX: A41.9 Sepsis, unspecified organism (principal); E43 Unspecified severe protein-calorie malnutrition; E87.1 Hypo-osmolality and hyponatremia; M86.679 Other chronic osteomyelitis, unspecified ankle and foot; B37.89 Other sites of candidiasis; I50.32 Chronic diastolic (congestive) heart failure; L03.116 Cellulitis of left lower limb; N17.9 Acute kidney failure, unspecified; E11.69 Type 2 diabetes mellitus with other specified complication; F10.10 Alcohol abuse, uncomplicated; D72.1 Eosinophilia; I11.0 Hypertensive heart disease with heart failure; I25.10 Atherosclerotic heart disease of native coronary artery without angina pectoris; E11.51 Type 2 diabetes mellitus with diabetic peripheral angiopathy without gangrene; Z82.49 Family history of ischemic heart disease and other diseases of the circulatory system; Z68.24 Body mass index [BMI] 24.0-24.9, adult; Z89.511 Acquired absence of right leg below knee; I25.2 Old myocardial infarction
CPT/HCPCS: 36415; 71045; 71275; 80048; 80053; 80061; 81001; 82140; 82435; 82436; 82550; 82553; 82570; 82805; 82962; 83036; 83735; 83930; 83935; 84100; 84300; 84484; 84550; 85007; 85025; 85610; 85652; 85730; 86140; 87040; 87086; 93005; 93010; G0378; J0360; J0692; J1170; J1650; J2405; J2543; J3370; J7030; J7040; J7050; Q9967

== ENCOUNTER 2018-09-17 16:52 | Emergency (ER) | payer MEDICARE ==
[2018-09-17] MEDS ORDERED: PERCOCET 5/325 PO ONE (17:38)
[2018-09-17 18:24] VITALS: BP 133/70
--- NOTE | 2018-09-17 18:42 | Emergency Department Report ---
ED General Adult HPI - General Chief complaint: Extremity Injury, Lower Stated complaint: WANTS TO BE CLEANED Time Seen by Provider: 09/17/18 17:27 Source: patient, EMS Mode of arrival: Stretcher Limitations: Physical Limitation - History of Present Illness Initial comments: Mr. Love is a 63-year-old male history of diabetes mellitus, CHF, right BKA, left foot osteomyelitis who presents with "I need a bath. I am sitting in my feces." I spoke with his PCP Dr. Narvaez PCP provided the same information. She has not seen this patient in over 5 months. She was last able to evaluate Mr. Love in February. She has been attempting to convince Mr. Love to be placed in a long-term detention facility. He was placed at a facility in [place]. However, he decided to be returned home. He admits that his is unable to care for him due to her multiple illnesses. Home healthcare/ wound care have limited access to the home in its state of disrepair. His trailer is small and quite dirty. His chronic leg wounds on the left will not heal in this setting. His PCP Dr. Narvaez appears to have finally convinced him to be placed at an assisted living facility or personal correction closer to his son in [place]. PCP is currently awaiting response from her psychiatric social worker supervisor for potential faclities. She also informed me that Mr. Love has plenty of income which will allow extermination supervisor placement. After she finished her assessment/home visit the patient, Mr. Love decided to call 911 for "a bath". Mr. Love told hiss primary physician that "they will clean me up if I go to the ER." He has severe left leg pain and swelling. He also has diffuse body aches. His PCP will arrange pain medication at home. -: Gradual, month(s) (several) Quality: aching Consistency: constant Improves with: none Worsens with: movement Associated Symptoms: other (generalized pain) - Related Data Previous Rx's Medication Instructions Recorded Last Taken Type Fluconazole [Diflucan TAB] 200 mg PO QDAY #7 tablet 09/02/18 Unknown Rx Nystatin [Nystop Powder] 1 applic TP BID 30 Days powder 09/02/18 Unknown Rx Sodium Bicarbonate 650 mg PO TID #90 tablet 09/02/18 Unknown Rx cephALEXin [Keflex] 500 mg PO Q6HR 7 Days #28 capsule 09/02/18 Unknown Rx oxyCODONE /ACETAMINOPHEN [Percocet 1 tab PO Q6HR PRN #14 tablet 09/02/18 Unknown Rx 5/325] Allergies Allergy/AdvReac Type Severity Reaction Status Date / Time No Known Allergies Allergy Verified 08/31/18 00:37 ED Review of Systems ROS: Stated complaint: WANTS TO BE CLEANED Other details as noted in HPI Comment: All other systems reviewed and negative Constitutional: denies: fever, malaise Skin: lesions ED Past Medical Hx - Past Medical History Previous Medical History?: Yes Hx Hypertension: Yes Hx Heart Attack/AMI: Yes (hx of cad s/p PCI) Hx Congestive Heart Failure: Yes Hx Diabetes: Yes Additional medical history: History of alcohol abuse, arterial insufficiency with ischemic ulcer, left calcaneus osteomyelitis - Surgical History Past Surgical History?: Yes Additional Surgical History: right BKA - Social History Smoking Status: Never Smoker Substance Use Type: None - Medications Home Medications: Home Medications Medication Instructions Recorded Confirmed Last Taken Type Fluconazole [Diflucan TAB] 200 mg PO QDAY #7 tablet 09/02/18 Unknown Rx Nystatin [Nystop Powder] 1 applic TP BID 30 Days powder 09/02/18 Unknown Rx Sodium Bicarbonate 650 mg PO TID #90 tablet 09/02/18 Unknown Rx cephALEXin [Keflex] 500 mg PO Q6HR 7 Days #28 capsule 09/02/18 Unknown Rx oxyCODONE /ACETAMINOPHEN [Percocet 1 tab PO Q6HR PRN #14 tablet 09/02/18 Unknown Rx 5/325] ED Physical Exam - General Limitations: Physical Limitation General appearance: alert, in no apparent distress, other (lower extremities covered in feces) - Head Head exam: Present: atraumatic, normocephalic - Eye Eye exam: Present: normal appearance - ENT ENT exam: Present: mucous membranes moist - Neck Neck exam: Present: normal inspection, full ROM - Respiratory Respiratory exam: Present: normal lung sounds bilaterally. Absent: respiratory distress, wheezes, rales, rhonchi - Cardiovascular Cardiovascular Exam: Present: regular rate, normal rhythm, normal heart sounds. Absent: systolic murmur, diastolic murmur, rubs, gallop - GI/Abdominal GI/Abdominal exam: Present: soft, normal bowel sounds. Absent: distended, tenderness, guarding, rebound - Rectal Rectal exam: Present: deferred - Extremities Exam Extremities exam: Present: other (left lower extremity: Edematous erythematous with multiple ulcers large ulcer at the calcaneus warm to touch) - Back Exam Back exam: Present: normal inspection - Neurological Exam Neurological exam: Present: alert, oriented X3 - Psychiatric Psychiatric exam: Present: normal affect, normal mood - Skin Skin exam: Present: warm, dry, intact, normal color. Absent: rash ED Course Vital Signs 09/17/18 18:23 Temperature 98.2 F Pulse Rate 86 Respiratory 18 Rate Blood Pressure 133/70 [Right] O2 Sat by Pulse 97 Oximetry ED Medical Decision Making - Medical Decision Making Mr. Love came for assistance with hygiene. He has a poor home situation. However he has support from son and . He also has significant amount of income. According to recent documentation and consultation by infectious disease specialist earlier this month, amputation of the left extremity was recommended at [facility]. Due to persistent osteomyelitis and obvious chronic cellulitis, below the knee amputation was recommended. However he declined this recommendation. I did speak with him regarding this recommendation. He stated, "I'm trying to save it". According to discharge summary was discharged with long-term Augmentin therapy. Mr. Love states that he has been bedbound since 2008. Currently he did not does not appear to be any acute emergent illness. His PCP DR. Narvaez has been very involved and quite helpful. She will follow up patient tomorrow. He will be discharged home. I prescribed Percocet for leg pain and generalized pain. Critical care attestation.: If time is entered above; I have spent that time in minutes in the direct care of this critically ill patient, excluding procedure time. ED Disposition Clinical Impression: Left foot infection, Cellulitis, Home help needed, Offensive odor of feces, Poor personal hygiene, Foot osteomyelitis, left Disposition: DC-01 TO HOME OR SELFCARE Is pt being admited?: No Does the pt Need Aspirin: No Condition: Stable
== END 2018-09-17 20:05 | disposition home or self-care (01) ==
LOC: ED 16:52
DX: L03.116 Cellulitis of left lower limb (principal); M86.9 Osteomyelitis, unspecified; I11.0 Hypertensive heart disease with heart failure; I25.2 Old myocardial infarction; I50.9 Heart failure, unspecified; E11.9 Type 2 diabetes mellitus without complications; Z89.511 Acquired absence of right leg below knee